=== PATIENT | male | born 1995 | race Caucasian/White ===

== ENCOUNTER 2019-09-30 07:49 | Emergency (ER) | payer OTHER, SELFPAY ==
[2019-09-30 07:49] VITALS: BP 161/85; PULSE 67; RESP 16; TEMP 36.4; O2SAT 99; BMI 38.0
--- NOTE | 2019-09-30 07:58 | RAD_ITS ---
STUDY: X-RAY CHEST REASON FOR EXAM: Male, 23 years old. TECHNIQUE: 2 views COMPARISON: None. FINDINGS: The lungs are clear and expanded. There is no demonstrated pleural abnormality. Normal size heart. Normal mediastinum and sherice. Normal visualized pulmonary arteries. Normal visualized aortic arch and descending thoracic aorta. Normal visualized thoracic spine. Normal visualized ribs, clavicles, and shoulders. There is no demonstrated abnormality of the visualized soft tissue structures of the upper abdomen. RAD/Chest PA and Lateral IMPRESSION: Normal x-ray examination of the chest. Electronically Signed: Amie Penaloza, at 8:36 EST Tel , Service support ,
--- NOTE | 2019-09-30 07:58 | EKG12_ITS ---
Test Reason : DYSRHYTHMIA Blood Pressure : / mmHG Vent. Rate : 076 BPM Atrial Rate : 076 BPM P-R Int : 140 ms QRS Dur : 090 ms QT Int : 396 ms P-R-T Axes : 044 032 033 degrees QTc Int : 445 ms Normal sinus rhythm with sinus arrhythmia Normal ECG Confirmed by SUMIT WINSLOW, PATRIC ([id number]), content editor SHARON HENSON ([id number]) on 10/03/2019 11:27:37 AM Referred By: SHALINI Confirmed By:PATRIC ARANA MD
--- NOTE | 2019-09-30 08:00 | ED.VIS.GEN ---
History of Present Illness Chief Complaint: Back Informant: Patient, Family Onset: Today - Dyspnea and dyspnea on exertion started today, Days - Right upper back pain started 2 days ago Context: Sudden Onset Timing: Continuous - Shortness of breath has been continuous since onset this morning, Intermittent - The upper back pain is intermittent and worse with movement Quality: Pain Location: Posterior right scapular region Current Severity: Mild Maximum Severity: Severe Worsened by: Use of right upper extremity and dyspnea on exertion Relieved by: Not using the right upper extremity and nothing Associated Symptoms: Please read HPI Narrative: This is a 23-year-old male who presents with chief complaint of right upper back pain that he localized to the right scapular region that started 2 days ago. He admits to lifting and pushing and pulling heavy objects several days ago. He works in [employer]. Pain started after stretching exercises. He also complains of shortness of breath that started this morning with dyspnea on exertion. The right upper back pain is worse with use of the right upper extremity. He saw a chiropractor yesterday. He was informed this is a strain and recommended ice and ibuprofen or Aleve. He has not taken any NSAID. He does report pain is worse with movement and better if he does not use right upper extremity. He denies radicular pain. He denies paresthesia, anesthesia or motor weakness. He denies fever, chills night sweats. He denies rhinorrhea, congestion or postnasal drainage. Denies sore throat. He does report shortness of breath and has significant shortness of breath with minimal activity. He states he starts to become short of breath after walking 5 steps. There is a pleuritic component of chest pain on the right side. He has no history of PE or DVT. Per mother there is no family history of PE or DVT. He denies leg pain, swelling discoloration. Prior similar symptoms: No Recent Illness/Hospitalization: Yes - Shoulder pain - Past Medical History (1) No significant past medical history Status: Acute Past Medical History - Allergies and Home Meds Allergies/Adverse Reactions: Allergies azithromycin [From Zithromax] Allergy (Verified 09/23/17 02:44) Unknown diphenhydramine HCl [From Benadryl] Allergy (Verified 09/23/17 02:44) Unknown Primary Care Physician: Hilton Mae III, MD [Primary Care Provider] - Prior records reviewed: Yes Past Medical History: None Surgical History: no surgical history Lives: With Family Smoking Status: Current every day smoker Alcohol: None Drugs: None Review of Systems General: Denies: Chills, Fever, Sweats Eyes: Denies: Visual changes - bilaterally, Blurred Vision - bilaterally, Diplopia ENT: Denies: Bilateral ear pain, Rhinorrhea, Sore throat Cardiovascular: Denies: Chest pain, Palpitations, Heart racing Respiratory: Reports: Dyspnea, Dyspnea on exertion. Denies: Cough Gastrointestinal: Denies: Abdominal pain, Nausea, Vomiting, Diarrhea, Melena, Hematochezia Genitourinary: Denies: Dysuria, Hematuria, Frequency Musculoskeletal: Reports: Back pain. Denies: Myalgias, Arthralgias, Neck pain, Swelling, Extremity Pain Skin: Denies: Rash, Abscess, Wounds Neurological: Denies: Headache, Weakness, Numbness Psych: Denies: Depression, Anxiety Hematologic: Denies: Easy bruising, Easy bleeding Allergy: Denies: Uticaria, Swelling of the mouth Physical Exam Vital Signs/Narrative: Vital Signs Temp Pulse Resp BP Pulse Ox 09/30/19 07:49 97.5 F L 67 16 161/85 H 99 Inital Vital Signs reviewed: Yes General: Well nourished, Well developed, Obese, Acute Distress - Appears tachypneic with minimal movement. Head: Normocephalic, Atraumatic Eyes: Perrl, EOMI. Negative for: Pale conjunctiva, Scleral icterus ENT: Moist mucous membranes, No rhinorrhea, TM's clear Neck: Supple, Nontender, No lymphadenopathy, No JVD Cardiovascular: Regular rate, Regular rhythm, No murmurs, Normal S1, Normal S2 Respiratory: CTA bilaterally, Chest nontender. Negative for: No distress, Rales, Rhonchi, Wheezing Abdomen: Soft, Nontender, Nondistended, Normal bowel sounds Back: Normal Inspection, - - There is pain palpation over the right scapular region.. Negative for: CVA tenderness, Spinal tenderness Extremities: Nontender, No edema, - - There is no asymmetry, swelling, discoloration, leg vein distention, palpable cords or tenderness along the distribution of the deep venous system. Skin: Normal color, No rash, No Trauma. Negative for: Cyanosis, Diaphoresis, Jaundice Neurological: Alert, Oriented x3, Cranial nerves II-XII grossly intact, Normal Strength, Normal Sensation Psychological: Normal affect, Normal Mood Diagnostic/Tx/Re-eval Chest X-Ray - ED: 2 View, Read by ED Physician, - - 2 view chest x-ray interpreted by me at 0822 reveals no acute abnormality. Cardiac silhouette and size are normal. Mediastinum is normal. Lung parenchyma is normal with no infiltrate or effusion. There is no evidence of pneumothorax. There is no evidence of rib fractures. If d-dimer is elevated patient will need a CTA of the chest to evaluate for pulmonary embolus. Impressions Chest X-Ray 09/30/19 07:58 IMPRESSION: Normal x-ray examination of the chest. Electronically Signed: Amie Penaloza, at 8:36 EST Tel , Service support , 09/30/19 07:58 Chest PA and Lateral [RAD] Stat Laboratory Results 09/30/19 09/30/19 09/30/19 08:05 08:05 08:05 WBC 8.7 RBC 5.80 Hgb 15.3 Hct 47.2 MCV 81.4 MCH 26.4 L MCHC 32.4 RDW Std Deviation 38.6 RDW Coeff of Elina 13.2 Plt Count 162 MPV 11.9 D-Dimer Quant (PE/DVT) 0.29 Sodium 144 Potassium 4.0 Chloride 109 H Carbon Dioxide 29.0 Anion Gap 6 BUN 9 Creatinine 0.90 Estim Creat Clear Calc 158.06 Est GFR (MDRD) Af Amer 134 Est GFR (MDRD) Non-Af 111 BUN/Creatinine Ratio 10.0 Glucose 101 Calcium 9.3 With a normal chest x-ray and normal d-dimer with no risk factors for pulmonary embolus no further testing/imaging is indicated. Blood work is unremarkable. Patient was informed of the shoulder pain is secondary to muscle strain. And the pain with breathing is inflammation and treated with NSAIDs. There is no contraindication to NSAIDs. - EKG Initial EKG Interpretation: Sinus Rhythm - Sinus rhythm with a ventricular rate of 76. UT interval is 140 ms. QS duration 90 ms. QT duration 396 ms. Onia is normal. There are no old EKGs for comparison. - Medical Decision Making With dyspnea dyspnea on exertion the fact the patient is tachypneic in spite of triage document respiratory is 16 concern patient may have PE. Other causes may be pneumonia or spontaneous pneumothorax. Chest x-ray was obtained as well as d-dimer and appropriate blood work. Patient was informed that his right scapular pain is muscle skeletal etiology and agree with recommendations given by chiropractor. NSAIDs for pleuritic chest pain and muscle strain. ED Disposition - Plan for ED Patient: Disposition: Home or Assisted Living Diagnosis: Pleurisy, Muscle strain of right shoulder region Instructions: Back Sprain/Strain, Pleurisy Referrals: Hilton Mae III, MD [Primary Care Provider] - 1 Week if not improving Additional Instructions: Recommend applying ice for 15 to 20 minutes 6-8 times a day. Avoid activity that causes your upper back pain to be worse. Agree with chiropractor to take either ibuprofen or Aleve for your shoulder pain. This will also help with your pleuritic pain, pain with breathing. If you are not better within a week follow-up with your primary care provider Dr. Hilton Mae.
[2019-09-30 08:16] LABS: Hematocrit 47.2 % (40-54); Hemoglobin 15.3 g/dL (13.0-16.5); Mean Corp Hgb Conc 32.4 g/dL (32-36); Mean Corpuscular Hgb 26.4 pg (27.0-32.0); Mean Corpuscular Volume 81.4 fL (80-94); Mean Platelet Vol. 11.9 fl (6.2-12.0); Platelet Count 162 K/mm3 (150-450); RBC Distribution Width CV 13.2 % (11.6-14.6); RBC Distribution Width SD 38.6 fl (35.1-43.9); White Blood Count 8.7 K/mm3 (4.4-11.0)
[2019-09-30 08:27] LABS: Anion Gap 6 (5-15); BUN 9 mg/dL (7-18); Calcium,Total 9.3 mg/dL (8.5-10.1); Chloride 109 mmol/L (98-107); EST Glomerular Filtration Rate 111 mL/min (>60); Est Glom Filt Rate - Afr Amer 134 mL/min (>60); Estimated Creatinine Clearance 158.06 ml/min; Glucose 101 mg/dL (74-106); Sodium Level 144 mmol/L (136-145)
[2019-09-30 09:21] LABS: D-Dimer Quantitative (DVT/PE) 0.29 FEU/ug/m (0.27-0.49)
[2019-09-30] MEDS: Ondansetron ODT 4 MG Tablet PO (09:39)
[2019-09-30 09:46] VITALS: BP 145/93; PULSE 79; RESP 16; O2SAT 98
== END 2019-09-30 09:47 | disposition home or self-care (01) ==
PROVIDERS: Emergency Provider Emergency Medicine; Family Provider Family Medicine; PCP Family Medicine
DX: S46.911A Strain of unspecified muscle, fascia and tendon at shoulder and upper arm level, right arm, initial encounter (principal); R09.1 Pleurisy; X58.XXXA Exposure to other specified factors, initial encounter; Y93.9 Activity, unspecified; Y92.9 Unspecified place or not applicable; Y99.9 Unspecified external cause status; M54.6 Pain in thoracic spine; R06.82 Tachypnea, not elsewhere classified; E66.9 Obesity, unspecified; Z88.8 Allergy status to other drugs, medicaments and biological substances; Z88.1 Allergy status to other antibiotic agents; F17.200 Nicotine dependence, unspecified, uncomplicated
CPT/HCPCS: 71046; 80048; 85027; 85379; 93005; 99285; A4216

== ENCOUNTER 2020-03-15 10:44 | Emergency (ER) | payer BC, SELFPAY ==
[2020-03-15 10:45] VITALS: BP 161/101; PULSE 95; RESP 18; TEMP 36.4; O2SAT 97; BMI 41.9
--- NOTE | 2020-03-15 10:54 | ED.DCSUM_ITS ---
- ER Visit Summary Date of Service: 03/15/20 Chief Complaint: Abdominal pain History of Present Illness: The patient is a 24 M who presents with abdominal pain. Started earlier today. He describes a stabbing sensation in his epigastric region. It does not radiate. Nothing makes it better or worse. He has had associated nausea without vomiting. No diarrhea or constipation. He denies any urinary symptoms. No fevers. He denies any history of abdominal surgeries. He states that his doctor has been following his liver enzymes as they were elevated at one point but they are trending down. He states that he went through a bad break-up and was drinking a lot of alcohol at that time but has since stopped drinking after his liver enzymes were elevated. His PCP did an acute hepatitis panel and it was negative. Physical Examination: Vital signs reviewed. HEENT exam unremarkable. Heart is regular rate and rhythm without murmurs. Lungs are clear to auscultation. Abdomen is soft with tenderness in the epigastric region. There is no right upper quadrant tenderness. No guarding or rebound tenderness. Extremities reveal no edema. Skin exam normal. Neurologic exam normal. Test Results: Laboratory studies show potassium 3.3, ALT 127, AST 61. Lipase and white count normal Emergency Department Course and Treatment: Patient was given a GI cocktail. Upon reevaluation he is feeling better. This is likely gastritis. He states he has no elevation of his liver enzymes which she is following with his PCP with. Patient will be discharged with Prilosec to take daily. He will follow-up with his PCP Treatment Plan: [] Disposition: Discharge Impression: Gastritis This note was generated with [employer] dictation software. It may contain incorrect words, spelling, and punctuation that were not noted in review of the chart prior to signing ED Disposition - Plan for ED Patient: Disposition: Home or Assisted Living Instructions: ED Gastritis Prescriptions: Omeprazole [Prilosec] 20 mg PO DAILY #30 cap Transmission Status: Pending to [facility]/pharmacy #[id number] Referrals: Hilton Mae III, MD [Primary Care Provider] -
[2020-03-15] MEDS: Mag Hydrox/Al Hydrox/Simeth 30 ML UDC PO (11:15)
[2020-03-15 11:28] LABS: Absolute Lymphocyte Count 2.69 X10^3/uL (0.83-4.51); Absolute Neutrophil Count 4.5 X10^3/uL (2.0-7.7); Basophil# 0.04 X10^3/uL; Basophil% 0.5 % (0-1); Eosinophil# 0.12 X10^3/uL; Eosinophils% 1.5 % (0-5); Hematocrit 47.8 % (40-54); Hemoglobin 15.4 g/dL (13.0-16.5); Lymphocyte # 2.69 X10^3/ul (4.0); Lymphocyte % 33.5 % (19-41); Mean Corp Hgb Conc 32.2 g/dL (32-36); Mean Corpuscular Hgb 26.9 pg (27.0-32.0); Mean Corpuscular Volume 83.6 fL (80-94); Mean Platelet Vol. 11.7 fl (6.2-12.0); Monocyte# 0.67 X10^3/uL; Monocyte% 8.3 % (0-10); NRBC Flagged by Analyzer 0 % (0-5); Neutrophil # 4.49 X10^3/uL (2.7-7.7); Neutrophil % 55.8 % (47-70); Platelet Count 150 K/mm3 (150-450); RBC Distribution Width SD 42.5 fl (35.1-43.9); Red Blood Count 5.72 M/mm3 (4.6-6.2)
[2020-03-15 11:47] LABS: AST(SGOT) 61 U/L (15-37); Alanine Aminotransfer ALT/SGPT 127 U/L (16-61); Alkaline Phosphatase 58 U/L (45-117); Anion Gap 6 (5-15); BUN 6 mg/dL (7-18); BUN/Creat Ratio 7.2 RATIO (10-20); Bilirubin, Direct 0.11 mg/dL (0.00-0.30); Calcium,Total 8.9 mg/dL (8.5-10.1); Chloride 105 mmol/L (98-107); Creatinine, Serum 0.84 mg/dL (0.70-1.30); EST Glomerular Filtration Rate 121 mL/min (>60); Est Glom Filt Rate - Afr Amer 146 mL/min (>60); Estimated Creatinine Clearance 159.02 ml/min; Globulin 3.5 g/dL (2.2-4.2); Glucose 76 mg/dL (74-106); Lipase 69 U/L (73-393); Potassium 3.3 mmol/L (3.5-5.1); Protein, Total 7.5 g/dL (6.4-8.2); Sodium Level 141 mmol/L (136-145)
--- OUTSIDE RECORDS SUMMARY | 2020-08-14 10:28 | XMS RPT_ITS | CCD ---
:1995 External Reference #:[id number] Author Organization [facility] Care Team Providers Name Role Phone ARABELLA, E Admitting Unavailable ARABELLA, E Attending Unavailable ARABELLA, E Primary Care Unavailable Ihsan Mae Primary Care Provider Allergies Reported Allergen Reaction(s) Severity Date of Onset Location Azithromycin 07-29-2005 - [facility] ([id number]) diphenhydrAMINE Other: See Comments 04-17-2011 - [facility] ([id number]) Medications Medication Name Sig Date Prescriber Location Ondansetron ondansetron orally 06-17-2020 [facility] disintegrating (ZOFRAN Isaura R (Pa) [place] ( [id number]) ODT) 4 mg disintegrating tablet Take 1 tablet by mouth every 8 hours as needed. 12 tablet 0 06/17/2020 Active Comment: Take 1 tablet by mouth every 8 hours as needed. valACYclovir valACYclovir (VALTREX) 04-20-2020 Angi N (Aircraft Structure Mechanic C [facility] 500 mg tablet Take 1 Cylinder Grinder) [place] ([id number]) tablet by mouth every Angi N (Aircraft Structure Mechanic 12 hours for 3 days. 6 Cylinder Grinder) [place] tablet 0 04/20/2020 Active Comment: Take 1 tablet by mouth every 12 hours for 3 days. Problems Active Problems Category Problem Name Status Date Location Genitourinary symptoms Urinary incontinence Active 02-07-2009 - [facility] and ill-defined (11996) conditions Immunizations and Contact with and Active 05-16-2020 - [facility] screening for infectious (suspected) exposure [facility] disease to other viral (63428) communicable diseases Nausea and vomiting Nausea and vomiting Active C [facility] ([id number]) Other liver diseases Non-alcoholic fatty Active 03-16-2020 - [facility] liver (94549) Other nutritional; Obesity Active 02-07-2009 - [facility] endocrine; and metabolic (44 195) disorders Unclassified Patient encounter Active 02-02-2010 - [facility] status (83861) Viral infection Genital herpes simplex Active 08-15-2019 - [facility] ([id number]) Past or Other Problems Category Problem Name Status Date Location Abdominal pain Abdominal pain Completed 11-06-2008 - [facility] ([id number]) Other screening for Liver function tests Completed 03-16-2020 - [facility] suspected conditions abnormal ([id number]) (not mental disorders or infectious disease) Other skin disorders Disorder of nail Completed 05-27-2012 - [facility] ([id number]) Results Result Name Value Range Unit Interpretation Flag Date Location progress on 2020-06 PROGRESS HNO ID: [id number] Normal 06-17-2020 [facility] Author: Isaura Stearns) Zulma Trevizo ([id number]) Service: ? Author Type: Physician Street Superintendent Type: Progress Notes Filed: 06/17/2020 12:41 PM Note Text: This note was created using [email or web address]. Elbert Pina is a 24 year old male. HPI Pt presents vomiting after eating. He has problems with this off and on since spring. He has been seen in the ER and by his primary doctor. He was diagnosed with fatty liver disease and he sta ceci his PCP contributed the vomiting to that. He did have an ultrasound of the right upper quadrant and march which showed a fatty liver. He states he's had some abdominal cramping off and on mainly before he goes to vomit. He started to vomit yesterday. He states he needs a work note a s he doesn't feel he should go in today. No fever. No cough or congestion . No sore throat. No diarrhea. Yesterday he did eat a fried chicken fr om [employer] but his girlfriend ate the same thing and she did not get il l. Review of Systems Constitutional: Negative. HENT: Negative. Negative for congestion, ear pain and sore t hroat. Eyes: Negative. Respiratory: Negative for cough and shortness of breath. Cardiovascular: Negative. Negative for chest pain. Gastrointestinal: Positive for abdominal pain, nausea and vo miting. Negative for diarrhea. Endocrine: Negative. Genitourinary: Negative. Musculoskeletal: Negative. All other systems reviewed and are negative. PAST MEDICAL HISTORY Diagnosis Date - Chronic mucoid otitis media - Expressive language disorder - Respiratory syncytial virus (RSV) Current Outpatient Medications Medication Sig Dispense Refill - valACYclovir (VALTREX) 500 mg tablet Take 1 tablet by mout h every 12 hours for 3 days. 6 tablet 0 - ondansetron orally disintegrating (ZOFRAN ODT) 4 mg disint egrating tablet Take 1 tablet by mouth every 8 hours as needed. 12 ta blet 0 No current facility-administered medications for this visit. PAST SURGICAL HISTORY Procedure Laterality Date - INCISION EARDRUM,ASPIR,GEN ANESTH Myringotomy/tubes - REPAIR ING HERNIA,5+Y/O,REDUCIBL 1986 Hernia repair, inguinal, bilateral FAMILY HISTORY Problem Relation Age of Onset - None Mother - None Father - Heart Maternal Grandmother - Hypertension Maternal Grandmother - Hypertension Paternal Grandfather - Diabetes Paternal Grandfather Social History Tobacco Use - Smoking status: Current Every Day Smoker Types: Cigarettes - Smokeless tobacco: Never Used - Tobacco comment: smokes 1-2 per day Substance Use Topics - Alcohol use: No - Drug use: No Objective BP 142/88 Pulse 80 Temp 37 ?C (98.6 ?F) (Left Tympanic) Resp 16 Wt (!) 150 kg (330 lb 9.6 oz) SpO2 97% Physical Exam Vitals signs reviewed. Constitutional: Appearance: Normal appearance. HENT: Head: Normocephalic and atraumatic. Mouth/Throat: Mouth: Mucous membranes are moist. Pharynx: Oropharynx is clear. Cardiovascular: Rate and Rhythm: Normal rate and regular rhythm. Pulmonary: Breath sounds: Normal breath sounds. Abdominal: General: Abdomen is flat. Bowel sounds are normal. There is no distension. Palpations: Abdomen is soft. There is no mass. Tenderness: There is no abdominal tenderness. There is no gu arding or rebound. Skin: General: Skin is warm and dry. Coloration: Skin is not jaundiced or pale. Findings: No rash. Neurological: General: No focal deficit present. Mental Status: He is alert and oriented to person, place, an d time. Psychiatric: Mood and Affect: Mood normal. Behavior: Behavior normal. Assessment and Plan ASSESSMENT/PLAN: 1. Non-intractable vomiting with nausea, unspecified vomitin g type - ICD9: 787.01, ICD10: R11.2 Patient appears well here. Vital signs are stable. Abdominal exam unremarkable. I will give him some Zofran. Discussed with teresita josé if he can't keep any fluids down over the next day, developed tatiana re abdominal pain or fever I would recommend being seen in the ED. This i s a chronic issue for him. I did encourage him to follow up with his PCP . He is agreeable with plan. MURRAY Burgerov on 2020-06-17 CNOV Office Visit ([facility]) Normal 06-17-20 20 [place] AROLDO Salcido ([id number]) 1995 M [place] Date Time Provider Department ([id number]) 06/17/20 12:00 PM ISAURA WEINBERG (SEEMA) W[facility] During your visit today, we recorded the following informati on about you: Temperature Pulse Respiration Blood pressure 98.6 degrees 80/minute 16/minute 142/88 Weight 150 kg Isaura Weinberg PA-C 06/17/2020 12:41 PM Signed This note was created using [email or web address]. Subjective Aroldo Pina is a 24 year old male. HPI Pt presents vomiting after eating. He has proble ms with this off and on since spring. He has been seen in the ER and by his primary doctor. He was diagnosed with fatty liver disease and he states his PCP con tributed the vomiting to that. He did have an ultrasound of the right u pper quadrant and march which showed a fatty liver. He state s he's had some abdominal cramping off and on mainly before he goes to vomit. He started to vomit y esterday. He states he needs a work note as he doesn't feel he should go in today. No fever. No cough or congestion. No sore throat. No diarrhea. Yesterday he did eat a fried chicken from [employer] but his girlfriend ate the same thing and she did not get ill. Review of Systems Constitutional: Negative. HENT: Negative. Negative for congestion, ear pain and sore t hroat. Eyes: Negative. Respiratory: Negative for cough and shortness of breath. Cardiovascular: Negative. Negative for chest pain. Gastrointestinal: Positive for abdominal pain, nausea and vomiting. Negative for diarrhea. Endocrine: Negative. Genitourinary: Negative. Musculoskeletal: Negative. All other systems reviewed and are negative. PAST MEDICAL HISTORY Diagnosis Date - Chronic mucoid otitis media - Expressive language disorder - Respiratory syncytial virus (RSV) Current Outpatient Medications Medication Sig Dispense Refill - valACYclovir (VALTREX) 500 mg tablet Take 1 tablet b y mouth every 12 hours for 3 days. 6 tablet 0 - ondansetron orally disintegrating (ZOFRAN ODT) 4 mg disi ntegrating tablet Take 1 tablet by mouth every 8 hours as needed. 12 tablet 0 No current facility-administered medications for this visit. PAST SURGICAL HISTORY Procedure Laterality Date - INCISION EARDRUM,ASPIR,GEN ANESTH Myringotomy/tubes - REPAIR ING HERNIA,5+Y/O,REDUCIBL 1986 Hernia repair, inguinal, bilateral FAMILY HISTORY Problem Relation Age of Onset - None Mother - None Father - Heart Maternal Grandmother - Hypertension Maternal Grandmother - Hypertension Paternal Grandfather - Diabetes Paternal Grandfather Social History Tobacco Use - Smoking status: Current Every Day Smoker Types: Cigarettes - Smokeless tobacco: Never Used - Tobacco comment: smokes 1-2 per day Substance Use Topics - Alcohol use: No - Drug use: No Objective BP 142/88 Pulse 80 Temp 37 ?C (98.6 ?F) (Left Tympanic) Resp 16 Wt (!) 150 kg (330 lb 9.6 oz) SpO2 97% Physical Exam Vitals signs reviewed. Constitutional: Appearance: Normal appearance. HENT: Head: Normocephalic and atraumatic. Mouth/Throat: Mouth: Mucous membranes are moist. Pharynx: Oropharynx is clear. Cardiovascular: Rate and Rhythm: Normal rate and regular rhythm. Pulmonary: Breath sounds: Normal breath sounds. Abdominal: General: Abdomen is flat. Bowel sounds are normal. There is no distension. Palpations: Abdomen is soft. There is no mass. Tenderness: There is no abdominal tenderness. There is no gu arding or rebound. Skin: General: Skin is warm and dry. Coloration: Skin is not jaundiced or pale. Findings: No rash. Neurological: General: No focal deficit present. Mental Status: He is alert and oriented to person, place, an d time. Psychiatric: Mood and Affect: Mood normal. Behavior: Behavior normal. Assessment and Plan ASSESSMENT/PLAN: 1. Non-intractable vomiting with nausea, unspecified vomitin g type - ICD9: 787.01, ICD10: R11.2 Patient appears well here. Vital signs are stable. Abdominal exam unremarkable. I will give him some Zofran. Discussed with teresita josé if he can't keep any fluids down over the next day, developed severe abd ominal pain or fever I would recommend being seen in th e ED. This is a chronic issue for him. I did encourage him to follow up with his PCP. He is agreeab le with plan. Isaura Weinberg PA-C Referring Provider: SELF [200] Allergies As of Date: 06/17/2020 Noted Allergy Reaction BENADRYL (DIPHENHYDRAMINE HCL) 04/17/2011 14 - Other: See Co mments Comments: Feels like he's jumping out of his skin ZITHROMAX (AZITHROMYCIN) 07/29/2005 Date Reviewed: 06/17/2020 Reviewed by: Angi Ohara Ma - Fully Assessed Reason for Visit: Vomiting [120] Primary Visit Diagnosis:Non-intractable vomiting with nausea , unspecified vomiting type [R11.2] Order(s):ondansetron orally disintegrating (ZOFRAN ODT) 4 mg disintegrating tabletTake 1 tablet by mouth every 8 hours as needed.Disp: 1 2 tabletRfl: 0 Prescriptions as of 06/17/2020 Sig: VALACYCLOVIR 500 MG TABLET Take 1 tablet by mouth every * ONDANSETRON 4 MG DISINTEGRATI* Take 1 tablet by mouth every * Problem List As Of Date 06/17/2020 Noted Resolved PAIN GROIN [R10.9] 11/06/2008 URINARY INCONTINENCE, UNSPECIFIED [R32] 02/07/2009 OBESITY NOS [E66.9] 02/07/2009 Well Adolescent Visit [Z00.3] 02/02/2010 Onychia and paronychia of toe [L03.039] 05/27/2012 Herpes genitalis in men [A60.02] 08/15/2019 Non-alcoholic fatty liver disease [K76.0] 03/16/2020 Elevated liver function tests [R79.89] 03/16/2020 Prescriptions ordered this encounter Disp Refills Start End ONDANSETRON 4 MG DISINTEGRATING TABL* 12 t* 0 06/17/2020 Route: ORAL Sig: Take 1 tablet by mouth every 8 hours as needed. Letter Text Encounter Status:Closed by ISAURA WEINBERG PA-C on 06/17/20 progress on 2020-05 PROGRESS HNO ID: [id number] Normal 05-31-2020 [facility] Author: Mitesh (Cylinder Grinder) [facility] ([id number]) Service: ? Author Type: Nurse Practitioner Type: Progress Notes Filed: 05/31/2020 12:15 PM Note Text: Subjective HPI HPI Aroldo Pina is a 24 year [facility], body aches. This started 2 days ago. Has tried otc medication. Risk factors hx of strep. .Patient presents with: Sore Throat: ST x 2 days PAST MEDICAL HISTORY Diagnosis Date - Chronic mucoid otitis media - Expressive language disorder - Respiratory syncytial virus (RSV) PAST SURGICAL HISTORY Procedure Laterality Date - INCISION EARDRUM,ASPIR,GEN ANESTH Myringotomy/tubes - REPAIR ING HERNIA,5+Y/O,REDUCIBL 1986 Hernia repair, inguinal, bilateral ALLERGIES Benadryl [Diphenhydramine Hcl]; Zithromax [Azithro mycin] -This section reviewed with patient, no changes MEDICATIONS valACYclovir (VALTREX) 500 mg tablet Take 1 tablet by mouth every 12 hours for 3 days. FAMILY HISTORY Problem Relation Age of Onset - None Mother - None Father - Heart Maternal Grandmother - Hypertension Maternal Grandmother - Hypertension Paternal Grandfather - Diabetes Paternal Grandfather Social History Tobacco Use - Smoking status: Current Every Day Smoker Types: Cigarettes - Smokeless tobacco: Never Used - Tobacco comment: smokes 1-2 per day Substance Use Topics - Alcohol use: No - Drug use: No Review of Systems Constitutional: Positive for malaise/fatigue. Negative for f ever. HENT: Positive for congestion. Negative for ear pain, nosebl eeds and sore throat. Respiratory: Negative for cough, shortness of breath and whe ezing. Musculoskeletal: Negative for neck pain. Skin: Negative for itching and rash. Objective Blood pressure 118/78, pulse 78, temperature 37 ?C (98.6 ?F) , temperature source Tympanic, resp. rate 16, weight (!) 148.3 kg (327 lb) . Minimal exam d/t covid 19 pandemic. Physical Exam Constitutional: He is oriented to person, place, and time an d well-developed, well-nourished, and in no distress. Non-toxi c appearance. He does not have a sickly appearance. No distress. HENT: Head: Normocephalic and atraumatic. Nose: Nose normal. Mouth/Throat: Oropharyngeal exudate and posterior oropharyng eal erythema present. No posterior oropharyngeal edema or tonsillar absce sses. Pulmonary/Chest: Effort normal. No accessory muscle usage. N o respiratory distress. Lymphadenopathy: He has cervical adenopathy. Right cervical: Superficial cervical adenopathy present. Left cervical: Superficial cervical adenopathy present. Neurological: He is alert and oriented to person, place, and time. Skin: He is not diaphoretic. ASSESSMENT/PLAN: 1. Exudative pharyngitis - ICD9: 462, ICD10: J02.9 - suspect strep, no testing available at time of exam d/t co vid 19 pandemic. - Discussed supportive care treatment with fluids, rest and analgesia. - The patient should follow up in 3-5 days if symptoms persi st or worsen - Call back if drooling, increased temperature, symptoms of dehydration and/or still sick in one week - CEPHALEXIN 500 MG CAPSULE Agrees to plan JOSEPH Castillo on 2020-05-31 CNOV Office Visit ([facility]) Normal 05-31-[address] [place] [address] [facility] AROLDO PINA ([id number]) 1995 [place] Date Time Provider Department ([id number]) 05/31/20 8:15 AM MITESH GONZALEZ (SEAN) WSTR During your visit today, we recorded the following informati on about you: Temperature Pulse Respiration Blood pressure 98.6 degrees 78/minute 16/minute 118/78 Weight 148.3 kg Mitesh Gonzalez APRN.CNP 05/31/2020 12:15 PM Signed Subjective HPI HPI Aroldo Pina is a 24 year old male who present s today for CC of sore throat, body aches. This started 2 days ago. Has tried otc medication. Risk factors hx of strep. .Patient presents with: Sore Throat: ST x 2 days PAST MEDICAL HISTORY Diagnosis Date - Chronic mucoid otitis media - Expressive language disorder - Respiratory syncytial virus (RSV) PAST SURGICAL HISTORY Procedure Laterality Date - INCISION EARDRUM,ASPIR,GEN ANESTH Myringotomy/tubes - REPAIR ING HERNIA,5+Y/O,REDUCIBL 1986 Hernia repair, inguinal, bilateral ALLERGIES Benadryl [Diphenhydramine Hcl]; Zithromax [Azithro mycin] -This section reviewed with patient, no changes MEDICATIONS valACYclovir (VALTREX) 500 mg tablet Sander e 1 tablet by mouth every 12 hours for 3 days. FAMILY HISTORY Problem Relation Age of Onset - None Mother - None Father - Heart Maternal Grandmother - Hypertension Maternal Grandmother - Hypertension Paternal Grandfather - Diabetes Paternal Grandfather Social History Tobacco Use - Smoking status: Current Every Day Smoker Types: Cigarettes - Smokeless tobacco: Never Used - Tobacco comment: smokes 1-2 per day Substance Use Topics - Alcohol use: No - Drug use: No Review of Systems Constitutional: Positive for malaise/fatigue. Negative for f ever. HENT: Positive for congestion. Negative for ear pain, nosebl eeds and sore throat. Respiratory: Negative for cough, shortness of breath and whe ezing. Musculoskeletal: Negative for neck pain. Skin: Negative for itching and rash. Objective Blood pressure 118/78, pulse 78, temperature 37 ?C (98.6 ?F) , temperature source Tympanic, resp. rate 16, weight (!) 148.3 kg (327 lb) . Minimal exam d/t covid 19 pandemic. Physical Exam Constitutional: He is oriented to person, place, and time and well-developed, well-nourished, and in no distress. Non-toxic appearan ce. He does not have a sickly appearance. No distress. HENT: Head: Normocephalic and atraumatic. Nose: Nose normal. Mouth/Throat: Oropharyngeal exudate and posterior oropharyng eal erythema present. No posterior oropharyngeal edema or tonsillar absce sses. Pulmonary/Chest: Effort normal. No accessory muscle usage. N o respiratory distress. Lymphadenopathy: He has cervical adenopathy. Right cervical: Superficial cervical adenopathy present. Left cervical: Superficial cervical adenopathy present. Neurological: He is alert and oriented to person, place, and time. Skin: He is not diaphoretic. ASSESSMENT/PLAN: 1. Exudative pharyngitis - ICD9: 462, ICD10: J02.9 - suspect strep, no testing available at time of exam d/t covid 19 pandemic. - Discussed supportive care treatment with fluids, rest and analgesia. - The patient should follow up in 3-5 days if symptoms persi st or worsen - Call back if drooling, increased tempe rature, symptoms of dehydration and/or still sick in one week - CEPHALEXIN 500 MG CAPSULE Agrees to plan Mitesh Gonzalez APRN.FOLDER HAND Referring Provider: SELF [200] Allergies As of Date: 05/31/2020 Noted Allergy Reaction BENADRYL (DIPHENHYDRAMINE HCL) 04/17/2011 14 - Other: See Co mments Comments: Feels like he's jumping out of his skin ZITHROMAX (AZITHROMYCIN) 07/29/2005 Date Reviewed: 05/31/2020 Reviewed by: Naomi Overton LPN - Fully Assessed Reason for Visit: Sore Throat [200] Cmt: ST x 2 days Primary Visit Diagnosis:Exudative pharyngitis [J02.9] Order(s):cephALEXin (KEFLEX) 500 mg caps uleTake 1 capsule by mouth twice daily for 10 days.Disp: 20 capsuleRfl: 0 Prescriptions as of 05/31/2020 Sig: CEPHALEXIN 500 MG CAPSULE Take 1 capsule by mouth twice* VALACYCLOVIR 500 MG TABLET Take 1 tablet by mouth every * Problem List As Of Date 05/31/2020 Noted Resolved PAIN GROIN [R10.9] 11/06/2008 URINARY INCONTINENCE, UNSPECIFIED [R32] 02/07/2009 OBESITY NOS [E66.9] 02/07/2009 Well Adolescent Visit [Z00.3] 02/02/2010 Onychia and paronychia of toe [L03.039] 05/27/2012 Herpes genitalis in men [A60.02] 08/15/2019 Non-alcoholic fatty liver disease [K76.0] 03/16/2020 Elevated liver function tests [R79.89] 03/16/2020 Prescriptions ordered this encounter Disp Refills Start End CEPHALEXIN 500 MG CAPSULE 20 c* 0 05/31/2020 06/10/2020 Route: ORAL Sig: Take 1 capsule by mouth twice daily for 10 days. Letter Text Encounter Status:Closed by MITESH GONZALEZ CNP on 05/31/20 coronavirus pcr [ccl] on 2020-05-18 REF LAB REPORT NEGATIVE Normal 05-18-2020 [facility] ([id number]) Comment: Performed By: #### [id number] ## ## [facility],[address] [place] [id number] coronavirus pcr [ccl] on 2020-05-17 COVID 19 Result ENGINEERING ASSISTANT Negative CORNEG Normal 05-17-2020 [facility] ( [id number]) Comment: Result Comment: Negative for COVID19 (SARS CoV2) by PCR. This test was developed and its performance characteristics determined by [facility]. This test has bee n authorized by FDA under an Emergency Use Authorization (EUA). This test has been validated in accordance with the FDA's Guidance Document Policy for Diagnostics Test ing in Laboratories Certified to Perform High Complexity Testing under CLI A prior to Emergency use Authorization for Coronavirus Disease 2019 dur ing the Public Health Emergency issued on December 31, 2019. [facility] [address] [place] [address] Hansel Soliz III, M.D. [id number] Performed By: #### [id number] ## ## [facility],[address] [place] [id number] COVID 19 Source ENGINEERING ASSISTANT Nasopharyngeal Swab Normal 0 05-17-2020 [facility] ( [id number]) Comment: Performed By: #### [id number] ## ## [facility],[address] [place] [id number] coronavirus 2019 on 2020-05-17 COVID 19 Result ENGINEERING ASSISTANT Negative for COVID19 Normal 05-17-2020 [facility] (SARS CoV2) by PCR. [facility] ([id number]) Comment: Result Comment: Negative for This test was developed and its performance characteristics determined by [facility]. This test has been authorized by FDA under an Emergency Use Authorization (EUA). This test has been validated in accordance with the FDA's Guidance Document Policy for Diagnostics Testing in Laboratories Certified to Perform High Complexity Testing under CLIA prior to Emergency use Authorization for Coronavir us Disease 2019 during the Public Health Emergency issued on December 31, 2019. COVID19 (SARS This test was developed and its performance characteristics determined by [facility]. This test has been authorized by FDA under an Emergency Use Authorization (EUA). This test has been validated in accordance with the FDA's Guidance Document Policy for Diagnostics Testing in Laboratories Certified to Perform High Complexity Testing under CLIA prior to Emergency use Authorization for Coronavir us Disease 2019 during the Public Health Emergency issued on December 31, 2019. CoV2) by PCR. This test was developed and its performance characteristics determined by [facility]. This test has been authorized by [facility] under an Emergency Use Authorization (EUA). This test has been validated in accordance with the FDA's Guidance Document Policy for Diagnostics Testing in Laboratories Certified to Perform High Complexity Testing under CLIA prior to Emergency use Authorization for Coronavir us Disease 2019 during the Public Health Emergency issued on December 31, 2019. COVID 19 Source ENGINEERING ASSISTANT ENGINEERING ASSISTANT Normal 05-17-2020 [facility] ([id number]) cnpn on 2020-05-02 CNPN Telephone (FAMPWS) Normal 05-02-2020 [place] AROLDO Salcido ([id number]) 1995 [facility] Date Time Provider Department ([id number]) 05/02/20 DEA MAE III During your visit today, we recorded the following informati on about you: Emilie Haynes LPN, STEPAN 05/02/2020 1:53 PM Signed ----- Message from Dea Mae III sent at 04/28/2020 11:46 AM EDT ----- Liver function tests remain elevated without significant imp rovement. 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 I recommend rechecking hepatitis labs. Orders entered Stay off of alcohol. ? DOMINIQUE Lowe MD, LPN, STEPAN 05/02/2020 1:57 PM Signed Left message for pt to return call. Luther Staton LPN 05/02/2020 2:36 PM Signed Spoke with patient and information listed below given. Carlos Eduardo avila verbalizes understanding. Luther Staton LPN Allergies As of Date: 05/02/2020 Noted Allergy Reaction BENADRYL (DIPHENHYDRAMINE HCL) 04/17/2011 14 - Other: See Co mments Comments: Feels like he's jumping out of his skin ZITHROMAX (AZITHROMYCIN) 07/29/2005 Date Reviewed: 04/19/2020 Reviewed by: Bo ([facility]) Rolando - Fully Assessed Reason for Visit: Results [95] Prescriptions as of 05/02/2020 Sig: VALACYCLOVIR 500 MG TABLET Take 1 tablet by mouth every * Problem List As Of Date 05/02/2020 Noted Resolved PAIN GROIN [R10.9] 11/06/2008 URINARY INCONTINENCE, UNSPECIFIED [R32] 02/07/2009 OBESITY NOS [E66.9] 02/07/2009 Well Adolescent Visit [Z00.3] 02/02/2010 Onychia and paronychia of toe [L03.039] 05/27/2012 Herpes genitalis in men [A60.02] 08/15/2019 Non-alcoholic fatty liver disease [K76.0] 03/16/2020 Elevated liver function tests [R79.89] 03/16/2020 Encounter Status:Closed by LUTHER STATON LPN on 05/02/20 progress on 2020-04 PROGRESS HNO ID: [id number] Normal 04-26-2020 [facility] [place] Author: Tara Melton) Elias [place] ([id number]) Service: ? Author Type: Nurse Practitioner Type: Progress Notes Filed: 04/26/2020 10:40 AM Note Text: 24 year old male with PMH non alcoholic fatty liver presents to the [facility] with complaints of dizziness and having blacked out approximately 3 times while at work today. Discussed with seema hunter that his episodes of blacking out would require more of a work up the n what can be provided here in the express care. His girlfriend accompanie s him today and patient will be taken via private vehicle with girlfrien d to [place], per their preference. Declined calling EMS. cnov on 2020-04-26 CNOV Office Visit (UCWSTR) Normal 04-26-[address] [place] [address] [facility] PINAAROLDO ([id number]) 1995 [facility] Time Provider Department ([id number]) 04/26/20 10:15 AM TARA ROOT) [facility] During your visit today, we recorded the following informati on about you: Tara Root APRN.CNP 04/26/2020 10:40 AM Signed 24 year old male with PMH non alcoholic fatty liver presen ts to the Express Care with complaints of dizziness and cardona ving blacked out approximately 3 times while at work today. Discussed with patient that his episodes of blacking out would require more of a work up then what can be provided here in the express care. His girlfriend accompanies him today and patient will be taken via private vehicle with girlfriend to [place], per their prefer ence. Declined calling EMS. Referring Provider: SELF [200] Allergies As of Date: 04/26/2020 Noted Allergy Reaction BENADRYL (DIPHENHYDRAMINE HCL) 04/17/2011 14 - Other: See Co mments Comments: Feels like he's jumping out of his skin ZITHROMAX (AZITHROMYCIN) 07/29/2005 Date Reviewed: 04/19/2020 Reviewed by: Bo ([facility]) Rolando - Fully Assessed Primary Visit Diagnosis:Dizziness [R42] Other Visit Diagnosis:Syncope, unspecified syncope type [R55 ] Prescriptions as of 04/26/2020 Sig: VALACYCLOVIR 500 MG TABLET Take 1 tablet by mouth every * VALACYCLOVIR 1 GRAM TABLET Take 1 tablet by mouth once d* Patient not taking: Reported on 03/15/2020 Problem List As Of Date 04/26/2020 Noted Resolved PAIN GROIN [R10.9] 11/06/2008 URINARY INCONTINENCE, UNSPECIFIED [R32] 02/07/2009 OBESITY NOS [E66.9] 02/07/2009 Well Adolescent Visit [Z00.129] 02/02/2010 Onychia and paronychia of toe [L03.039] 05/27/2012 Herpes genitalis in men [A60.02] 08/15/2019 Non-alcoholic fatty liver disease [K76.0] 03/16/2020 Elevated liver function tests [R79.89] 03/16/2020 Encounter Status:Closed by TARA ROOT CNP on 04/26/20 seann on 2020-04-20 [facility] Telephone ([facility]) Normal 04-20-2020 [place] [facility] AROLDO PINA W ([id number]) 1995 [facility] Date Time Provider Department ([id number]) 04/20/20 ANGI BAE (GEAR ROOM KEEPER, FOLDER HAND)[facility] During your visit today, we recorded the following informati on about you: Angi Bae APRN.CNP 04/20/2020 1:06 PM Addendum Spoke with patient today regarding 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 I will go ahead and order Valtrex 500 mg q12 hours for 3 days as recommended for he rpes recurrence per Dr. Mae's note in March. I will also forward this to him as an FYI. Patient confirmed an understanding of this. Patient states he lost his bottle of Valtrex in a recent mov e. Angi Bae APRN.CNP Allergies As of Date: 04/20/2020 Noted Allergy Reaction BENADRYL (DIPHENHYDRAMINE HCL) 04/17/2011 14 - Other: See Co mments Comments: Feels like he's jumping out of his skin ZITHROMAX (AZITHROMYCIN) 07/29/2005 Date Reviewed: 04/19/2020 Reviewed by: Bo (Sean) Rolando - Fully Assessed Reason for Visit: Results [95] Order(s):valACYclovir (VALTREX) 500 mg tabletTake 1 ta blet by mouth every 12 hours for 3 days.Disp: 6 tabletRfl: 0 Prescriptions as of 04/20/2020 Sig: VALACYCLOVIR 500 MG TABLET Take 1 tablet by mouth every * MUPIROCIN 2 % TOPICAL OINTMENT Apply to affected area three * VALACYCLOVIR 1 GRAM TABLET Take 1 tablet by mouth once d* Patient not taking: Reported on 03/15/2020 Problem List As Of Date 04/20/2020 Noted Resolved PAIN GROIN [R10.9] 11/06/2008 URINARY INCONTINENCE, UNSPECIFIED [R32] 02/07/2009 OBESITY NOS [E66.9] 02/07/2009 Well Adolescent Visit [Z00.129] 02/02/2010 Onychia and paronychia of toe [L03.039] 05/27/2012 Herpes genitalis in men [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 Encounter Status:Closed by ANGI BAE APRN.CNP on 04/20 wound culture/stain on 2020-04-19 Wound Culture/Stain Sp. Request/Comment: - Swab Cr itically 04-19-2020 [place] Smear Result - No organisms seen No Polymorphonuclear Leukoc ytes abnormal Clinic Culture Result - Rare Coagul ase negative Staphylococcus species --> ABNORMAL ALERT No further workup --> ABNORMAL ALERT For wound culture, tissue or aspirates are superior to swab specimens. If a [place] swab must be used, eSwab is preferred (Hernandez no. [id number]). ([id number]) Comment: Performed By: #### WCUL #### [facility] [place] [address] [place], [place] [phone] progress on 2020-04 PROGRESS HNO ID: [id number] Normal 04-19-2020 [facility] [place] Author: Bo (Cylinder Grinder) Rolando Trevizo ([id number]) Service: ? Author Type: Nurse Practitioner Type: Progress Notes Filed: 04/19/2020 8:58 AM Note Text: Subjective HPI Nontoxic-appearing male presents urgent care with a chief co mplaint rash. Duration of symptoms 1 day. Associated symptoms pain/itching . Patient states that his rash started yesterday initially was itching now more painful. Patient states use of disinfectant wipes for sympto m management no relief. Patient states pain is 5 out of 10 currently. His tory of genital herpes. Patient has been off acyclovir due to elevat ed liver enzymes. Denies recent sick contacts. Denies nausea vomiting fevers chest pain pleuritic pain abdominal pain headaches visual ch anges change in bowel or bladder habit. Patient denies any other rashes o r chief complaints. .Patient presents with: bump on back of left leg: x 1 day PAST MEDICAL HISTORY Diagnosis Date - Chronic mucoid otitis media - Expressive language disorder - Respiratory syncytial virus (RSV) PAST SURGICAL HISTORY Procedure Laterality Date - INCISION EARDRUM,ASPIR,GEN ANESTH Myringotomy/tubes - REPAIR ING HERNIA,5+Y/O,REDUCIBL 1986 Hernia repair, inguinal, bilateral ALLERGIES Benadryl [Diphenhydramine Hcl]; Zithromax [Azithro mycin] MEDICATIONS valACYclovir (VALTREX) 1 gram Take 1 tablet by mouth once da lai. For Suppressive therapy. FAMILY HISTORY Problem Relation Age of Onset - None Mother - None Father - Heart Maternal Grandmother - Hypertension Maternal Grandmother - Hypertension Paternal Grandfather - Diabetes Paternal Grandfather Social History Tobacco Use - Smoking status: Current Every Day Smoker Types: Cigarettes - Smokeless tobacco: Never Used - Tobacco comment: smokes 1-2 per day Substance Use Topics - Alcohol use: No - Drug use: No BP 122/82 Pulse 82 Temp 36.6 ?C (97.8 ?F) (Tympanic) R selene 16 Wt (!) 147.3 kg (324 lb 12.8 oz) Review of Systems Constitutional: Negative for chills, fever and malaise/fatig ue. HENT: Negative for congestion, ear discharge, ear pain, sinu s pain and sore throat. Eyes: Negative for blurred vision, double vision and photoph obia. Respiratory: Negative for cough, sputum production, shortnes s of breath and wheezing. Cardiovascular: Negative for chest pain. Gastrointestinal: Negative for abdominal pain, nausea and vo miting. Genitourinary: Negative. Musculoskeletal: Negative for myalgias. Skin: Positive for itching and rash. Neurological: Negative for dizziness and headaches. Objective Physical Exam Constitutional: He is oriented to person, place, and time an d well-developed, well-nourished, and in no distress. No distr ess. HENT: Head: Normocephalic and atraumatic. Right Ear: Hearing, external ear and ear canal normal. No dr ainage, swelling or tenderness. No decreased hearing is noted. Left Ear: Hearing, tympanic membrane, external ear and ear c anal normal. No drainage, swelling or tenderness. No decreased hearing is noted. Mouth/Throat: Uvula is midline. No trismus in the jaw. No uv [place] swelling. No oropharyngeal exudate, posterior oropharyngeal edema, pos terior oropharyngeal erythema or tonsillar abscesses. Eyes: Pupils are equal, round, and reactive to light. Conjun ctivae are normal. Right eye exhibits no discharge. Left eye exhibits n o discharge. Neck: Normal range of motion. Neck supple. Cardiovascular: Normal rate, regular rhythm and normal heart sounds. Pulmonary/Chest: Effort normal and breath sounds normal. No accessory muscle usage. No tachypnea. No respiratory distress. He has no wheezes. He has no rales. He exhibits no tenderness. Abdominal: Soft. There is no abdominal tenderness. Musculoskeletal: Normal range of motion. General: No tenderness. Lymphadenopathy: Head (right side): No submental, no submandibular, no tonsil lar, no preauricular, no posterior auricular and no occipital adenop athy present. Head (left side): No submental, no submandibular, no tonsill ar, no preauricular, no posterior auricular and no occipital adenop athy present. He has no cervical adenopathy. Right cervical: No superficial cervical and no posterior cer vical adenopathy present. Left cervical: No superficial cervical and no posterior cerv ical adenopathy present. Neurological: He is alert and oriented to person, place, and time. Skin: Skin is warm and dry. Rash noted. No abrasion, no ecch ymosis, no lesion and no petechiae noted. Rash is pustular and vesicula r. He is not diaphoretic. There is erythema. Fluid-filled vesicles in a circular pattern noted posterior aspect left upper leg. 1 cm x 1 cm. No Drainage. Nursing note and vitals reviewed. ASSESSMENT/PLAN: 1. Rash - ICD9: 782.1, ICD10: R21 - WOUND CULTURE AND GRAM STAIN - HSV 1,2/VZV AMP MOLECULAR DETECT Cultures obtained. Patient will use mupirocin until results are received. Suspicious of HSV. Patient was educated on supportive therap ies. Patient will follow up with primary care provider as needed. Patient was instructed to immediately proceed to emergency room for any new, worsening, or symptoms lasting longer than anticipated. The patient's clinical presentation is otherwise unremarkable at this time . Based on exam and clinical finding, the patient is stable for dischar ge. Plan of care was discussed with patient. Patient verbalizes understa nding and agrees to plan of care. This note was generated using [employer] software. It may contain errors in wording, punctuation, or spelling. Bo Marshall APRN.FOLDER HAND hsv1,2/vzv amplif o n 2020-04-19 HSV Type 1, HDA Negative for Herpes Normal 04-02 [facility] [place] Simplex virus Type 1 by [place] ([id number]) Molecular Detection. Comment: Performed By: #### HSVVZV ## ## [facility] [place] [facility] [address] [place] [address] HSV Type 2, Positive for Herpes Critically abnorma l 04-19-2020 [facility] [place] HDA Simplex virus Type C leveland ([id number]) 2 by Molecular Detection. Comment: Performed By: #### HSVVZV ## ## [place] [id number] [place] [id number] Specimen source Nom (Unsp Lesion Normal 04-02 [facility] spec) ([id number]) Comment: Performed By: #### HSVVZV ## ## [place] [address] V Zoster Virus, HDA Negative for Varicella Normal 04-19-2020 [facility] [place] Zoster virus by Veena ahuja ([id number]) Molecular Detection. Comment: Performed By: #### HSVVZV ## ## [place] [address] hepatic functn panel on 2020-04-19 Albumin [Mass/Vol] 4.7 3.9-4.9 g/dL Normal 04-19-2020 [facility] ([id number]) Comment: Performed By: #### HFP #### [place] [address] ALP [Catalytic activity/Vol] 47 38-113 U/L Normal 0 04-19-2020 [facility] ([id number]) Comment: Performed By: #### HFP #### [place] [address] ALT [Catalytic activity/Vol] 102 10-54 U/L High 0 04-19-2020 [facility] ([id number]) Comment: Performed By: #### HFP #### [place] [id number] AST [Catalytic activity/Vol] 69 14-40 U/L High 0 04-19-2020 [facility] ([id number]) Comment: Performed By: #### HFP #### [place] [address] Bilirubin [Mass/Vol] 0.6 0.2-1.3 mg/dL Normal 0 [facility] ([id number]) Comment: Performed By: #### HFP #### [facility] [place] [facility] [address] [place], [place] [address] Bilirubin,Conjugated <0.2 <0.2 Normal 0 [facility] ([id number]) Comment: Performed By: #### HFP #### [facility] [place] [facility] [address] [place], [place] [address] Protein [Mass/Vol] 7.3 6.3-8.0 g/dL Normal 04-19-2020 [facility] ([id number]) Comment: Performed By: #### HFP #### [facility] [place] [facility] [address], [place] [address] cnov on 2020-04-19 CNOV Office Visit (UCWSTR) Normal 04-19-20 [place] [facility] AROLDO PINA ([id number]) 1995 [facility] Date Time Provider Department ([id number]) 04/19/20 7:45 AM BO MARSHALL (FOLDER HAND) [facility] During your visit today, we recorded the following informati on about you: Temperature Pulse Respiration Blood pressure 97.8 degrees 82/minute 16/minute 122/82 Weight 147.3 kg Bo Marshall APRN.SEAN 04/19/2020 8:58 AM Signed Subjective HPI Nontoxic-appearing male presents urgent care with a chief co mplaint rash. Duration of symptoms 1 day. Associated symptoms pain/i tching. Patient states that his rash started yesterday initially was itching now mo re painful. Patient states use of disinfectant wipes for symptom managem ent no relief. Patient states pain is 5 out of 10 currently. History of gen ital herpes. Patient has been off acyclovir due to elevated liver enzym es. Denies recent sick contacts. Denies nausea vomiting fevers chest pain pleu ritic pain abdominal pain headaches visual changes change in bowel or b ladder habit. Patient denies any other rashes or chief complaints. .Patient presents with: bump on back of left leg: x 1 day PAST MEDICAL HISTORY Diagnosis Date - Chronic mucoid otitis media - Expressive language disorder - Respiratory syncytial virus (RSV) PAST SURGICAL HISTORY Procedure Laterality Date - INCISION EARDRUM,ASPIR,GEN ANESTH Myringotomy/tubes - REPAIR ING HERNIA,5+Y/O,REDUCIBL 1986 Hernia repair, inguinal, bilateral ALLERGIES Benadryl [Diphenhydramine Hcl]; Zithromax [Azithro mycin] MEDICATIONS valACYclovir (VALTREX) 1 gram Take 1 tablet by mouth once da lai. For Suppressive therapy. FAMILY HISTORY Problem Relation Age of Onset - None Mother - None Father - Heart Maternal Grandmother - Hypertension Maternal Grandmother - Hypertension Paternal Grandfather - Diabetes Paternal Grandfather Social History Tobacco Use - Smoking status: Current Every Day Smoker Types: Cigarettes - Smokeless tobacco: Never Used - Tobacco comment: smokes 1-2 per day Substance Use Topics - Alcohol use: No - Drug use: No BP 122/82 Pulse 82 Temp 36.6 ?C (97.8 ?F) (Tympanic) Resp 16 Wt (!) 147.3 kg (324 lb 12.8 oz) Review of Systems Constitutional: Negative for chills, fever and malaise/fatig ue. HENT: Negative for congestion, ear discharge, ear pain, si nus pain and sore throat. Eyes: Negative for blurred vision, double vision and photoph obia. Respiratory: Negative for cough, sputum production, shortn ess of breath and wheezing. Cardiovascular: Negative for chest pain. Gastrointestinal: Negative for abdominal pain, nausea and vo miting. Genitourinary: Negative. Musculoskeletal: Negative for myalgias. Skin: Positive for itching and rash. Neurological: Negative for dizziness and headaches. Objective Physical Exam Constitutional: He is oriented to person, place, and time and well-developed, well-nourished, and in no distress. No distress. HENT: Head: Normocephalic and atraumatic. Right Ear: Hearing, external ear and ear canal normal. No drainage, swelling or tenderness. No decreased hearing is noted. Left Ear: Hearing, tympanic membrane, external ear and ear canal normal. No drainage, swelling or tenderness. No decreased hearing is no dann. Mouth/Throat: Uvula is midline. No trismus in the jaw. No uvula swelling. No oropharyngeal exudate, posterior oropharyngeal e johnathan, posterior oropharyngeal erythema or tonsillar abscesses. Eyes: Pupils are equal, round, and react shirley to light. Conjunctivae are normal. Right eye exhibits no discharge. Left eye exhibits no discha rge. Neck: Normal range of motion. Neck supple. Cardiovascular: Normal rate, regular rhythm and normal heart sounds. Pulmonary/Chest: Effort normal and breath sounds leo l. No accessory muscle usage. No tachypnea. No respiratory distress. He has no whee zes. He has no rales. He exhibits no tenderness. Abdominal: Soft. There is no abdominal tenderness. Musculoskeletal: Normal range of motion. General: No tenderness. Lymphadenopathy: Head (right side): No submental, no submandibular, no tonsil lar, no preauricular, no posterior auricular and no occipital adenop athy present. Head (left side): No submental, no submandibular, no tonsill ar, no preauricular, no posterior auricular and no occipital adenop athy present. He has no cervical adenopathy. Right cervical: No superficial cervical and no posterior cer vical adenopathy present. Left cervical: No superficial cervical and no posterior cerv ical adenopathy present. Neurological: He is alert and oriented to person, place, and time. Skin: Skin is warm and dry. Rash noted. No abras ion, no ecchymosis, no lesion and no petechiae noted. Rash is pustular and vesicular. He is not diaphoretic. There is erythema. Fluid-filled vesicles in a circular pattern note d posterior aspect left upper leg. 1 cm x 1 cm. No Drainage. Nursing note and vitals reviewed. ASSESSMENT/PLAN: 1. Rash - ICD9: 782.1, ICD10: R21 - WOUND CULTURE AND GRAM STAIN - HSV 1,2/VZV AMP MOLECULAR DETECT Cultures obtained. Patient will use mupirocin until results are received. Suspicious of HSV. Patient was educated on suppo rtive therapies. Patient will follow up with primary care provider as needed. Patient was instructed to immediately proceed to emergency room for any new, worsening , or symptoms lasting longer than anticipated. The patient's clinical pres entation is otherwise unremarkable at this time. Based on exam and clinical finding, the patient is stable for discharge. Plan of care was discussed with patient. Patient verbalizes understanding and agrees to plan of care. This note was generated using [employer]. It may contain errors in wording, punctuation, or spelling. Bo Marshall APRN.SEAN Marshall APRN.CNP 04/19/2020 8:16 AM Signed Diagnosis: Assessment NONSPECIFIC RASH: Our exam shows you have a rash which has no clear cause. Davis hes can result from infections, allergies, or irritation of the skin by c hemicals or other environmental factors. Rashes can also result from scr atching or rubbing the skin too much to relieve itching. Furthe r medical examination may be needed to identify the specific cause and proper treatment of your ski n rash. You should treat your rash as recommende d by your doctor. If you have itching, you should avoid scratching as much as possible, as th is further damages the skin. Ask your doctor or pharmacist if you have any question s about what topical medicines may help relieve your symptoms . Call your doctor right away if your rash is not better i n 2-3 days, if it worsens, or if there are signs of infection (increased pain, redness, drainage or pus). Referring Provider: SELF [[id number]] Allergies As of Date: 04/19/2020 Noted Allergy Reaction BENADRYL (DIPHENHYDRAMINE HCL) 04/17/2011 14 - Other: See Co mments Comments: Feels like he's jumping out of his skin ZITHROMAX (AZITHROMYCIN) 07/29/2005 Date Reviewed: 04/19/2020 Reviewed by: Bo (Sean) Rolando - Fully Assessed Reason for Visit: bump on back of left leg [Other] Cmt: x 1 day Primary Visit Diagnosis:Rash [R21] Order(s):mupirocin (BACTROBAN) 2 % ointmentApply to affected area three times daily for 5 days.Disp: 30 gRfl: 0 WOUND CULTURE AND GRAM STAIN [SQWCUL] Order #: [id number] HSV 1,2/VZV AMP MOLECULAR DETECT [SQHSVVZV] Order #: [id number] FUTURE Prescriptions as of 04/19/2020 Sig: MUPIROCIN 2 % TOPICAL OINTMENT Apply to affected area three * VALACYCLOVIR 1 GRAM TABLET Take 1 tablet by mouth once d* Patient not taking: Reported on 03/15/2020 Problem List As Of Date 04/19/2020 Noted Resolved PAIN GROIN [R10.9] 11/06/2008 URINARY INCONTINENCE, UNSPECIFIED [R32] 02/07/2009 OBESITY NOS [E66.9] 02/07/2009 Well Adolescent Visit [Z00.129] 02/02/2010 Onychia and paronychia of toe [L03.039] 05/27/2012 Herpes genitalis in men [A60.02] 08/15/2019 Non-alcoholic fatty liver disease [K76.0] 03/16/2020 Elevated liver function tests [R79.89] 03/16/2020 Other instructions from your clinician: Diagnosis: Assessment NONSPECIFIC RASH: Our exam shows you have a rash which has no clear cause. Davis hes can result from infections, allergies, or irritation of the skin by chemicals or other environmental factors. Rashes can also result from scratching or rubbing the skin too much to relieve itching. Further medica l examination may be needed to identify the specific cause and proper bob tment of your skin rash. You should treat your rash as recommended by your doctor. If you have itching, you should avoid scratching as much as possible, as this further damages the skin. Ask your doctor or pharmacist if you have any questions about what topical medicines may help relieve your symptoms. Call your doctor right away if your rash is not better in 2-3 days, if it worsens, or if there are signs of infection (increased pain, redness, drainage or pus). Prescriptions ordered this encounter Disp Refills Start End MUPIROCIN 2 % TOPICAL OINTMENT 30 g 0 04/19/2020 04/24/2020 Route: TOPICAL Sig: Apply to affected area three times daily for 5 days. Letter Text Letter Text Encounter Status:Closed by ROLANDO LEÓN.BO DE JESUS on progress on 2020-05 -15 PROGRESS HNO ID: [id number] Normal 03-16-2020 [facility] [place] Author: Dea Mae III [place] ([id number]) Service: ? Author Type: Physician Type: Progress Notes Filed: 03/16/2020 3:58 PM Note Text: This Team Access Model visit is a phone encounter. It requir ed patient-provider interaction for the medical decision making as documented below. called pt at [phone] SUBJECTIVE: This is a 24 year old male that is here today fo r ER Follow Up. 03/15/20. ER record reviewed. He had acute onset of epigastric discomfort after eating piz za and broccoli salad. Dx of gastritis. 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 No abd pain or nausea or fever or malaise today. 2. Has noted nausea with emesis starting about December. Starte d valtrex end of December. Has elevated LFTs since starting Valtrex. Lab docu mented herpes simplex II infection on genitals. Valtrex stopped 1 wk ago. No emesis or nausea since then. Discussed option of switching to another medication, but he declined and chose to treat episodically rather than preventatively. PAST MEDICAL HISTORY Diagnosis Date - Chronic mucoid otitis media - Expressive language disorder - Respiratory syncytial virus (RSV) Current Outpatient Medications on File Prior to Visit Medication Sig - valACYclovir (VALTREX) 1 gram Take 1 tablet by mouth once daily. For Suppressive therapy. (Patient not taking: Reported on 020 ) No current facility-administered medications on file prior t o visit. FAMILY HISTORY Problem Relation Age of Onset - None Mother - None Father - Heart Maternal Grandmother - Hypertension Maternal Grandmother - Hypertension Paternal Grandfather - Diabetes Paternal Grandfather s.och Social History Tobacco Use - Smoking status: Current Every Day Smoker Types: Cigarettes - Smokeless tobacco: Never Used - Tobacco comment: smokes 1-2 per day Substance Use Topics - Alcohol use: No - Drug use: No There were no vitals taken for this visit. . OBJECTIVE: cheerful, alert, rational, goal oriented ASSESSMENT: elevated liver function tests due to daily valtrex acute gastritis --resolved PLAN: After discussion we mutually decided to limit valtrex to 500 mg q 12 hrs x 3 days only for suppression of recurrence of herpes. recheck liver function tests in 1 mo. limit ETOH intake healthy weight losing diet and regular exercise eat less sugar, bread, potato, pasta, rice, corn, corn syrup , saturated fats Dea Mae III MD ended at 1551 17 min cnpn on 2020-03-16 [facility] Telephone (FAMPWS) Normal 03-16-2020 [place] [facility] PINAAROLDO ([id number]) 1995 [place] Date Time Provider Department ([id number]) 03/16/20 DEA MAE III During your visit today, we recorded the following informati on about you: Pat Sanchez Pss 03/16/2020 9:15 AM Signed Patient was seen at the [facility] Er 03/15/2020. Seema hunter declines to download Embibe chris. Patient is request ing a phone call after work at 2:30 PM Alfredo Porter Ma 03/16/2020 9:26 AM Signed ER records given to provider. Alfredo Mae III MD 03/16/2020 10:07 AM Signed please make this a phone appt DOMINIQUE Lowe MD, Ma 03/16/2020 1:30 PM Signed PATIENT NOTIFIED AND SCHEDULED. Alfredo Porter Ma Allergies As of Date: 03/16/2020 Noted Allergy Reaction BENADRYL (DIPHENHYDRAMINE HCL) 04/17/2011 14 - Other: See Co mments Comments: Feels like he's jumping out of his skin ZITHROMAX (AZITHROMYCIN) 07/29/2005 Date Reviewed: 03/15/2020 Reviewed by: Naomi Overton LPN - Fully Assessed Reason for Visit: Appointment [186] Prescriptions as of 03/16/2020 Sig: VALACYCLOVIR 1 GRAM TABLET Take 1 tablet by mouth once d* Patient not taking: Reported on 03/15/2020 NAPROXEN 500 MG TABLET Take 1 tablet by mouth twice * Patient not taking: Reported on 09/12/2018 Problem List As Of Date 03/16/2020 Noted Resolved PAIN GROIN [R10.9] 11/06/2008 URINARY INCONTINENCE, UNSPECIFIED [R32] 02/07/2009 OBESITY NOS [E66.9] 02/07/2009 Well Adolescent Visit [Z00.129] 02/02/2010 Onychia and paronychia of toe [L03.039] 05/27/2012 Herpes genitalis in men [A60.02] 08/15/2019 Encounter Status:Closed by ALFREDO PORTER MA on 03/16/20 [facility] Telephone (FAMPWS) Normal 03-16-2020 [place] [facility] AROLDO PINA ([id number]) 1995 [facility] Time Provider Department ([id number]) 03/16/20 DIOGENES GAYTAN [facility] During your visit today, we recorded the following informati on about you: Diogenes Gaytan MD 03/16/2020 7:42 AM Signed Ultrasound shows fatty liver. The muscles at top of abdomen look slightly swollen. I also saw he went to ED yesterday. I would h ave him follow up next week with Dr. Mae or Natalie Malik RN 03/16/2020 9:12 AM Signed Pt called, verified by name and birthdate. Patient notified of results and provider's instructions. Patient verbalizes understand ing. Pt transferred to PSR to schedule apt Kellen Malik RN Allergies As of Date: 03/16/2020 Noted Allergy Reaction BENADRYL (DIPHENHYDRAMINE HCL) 04/17/2011 14 - Other: See Co mments Comments: Feels like he's jumping out of his skin ZITHROMAX (AZITHROMYCIN) 07/29/2005 Date Reviewed: 03/15/2020 Reviewed by: Naomi Overton LPN - Fully Assessed Reason for Visit: Results [95] Prescriptions as of 03/16/2020 Sig: VALACYCLOVIR 1 GRAM TABLET Take 1 tablet by mouth once d* Patient not taking: Reported on 03/15/2020 NAPROXEN 500 MG TABLET Take 1 tablet by mouth twice * Patient not taking: Reported on 09/12/2018 Problem List As Of Date 03/16/2020 Noted Resolved PAIN GROIN [R10.9] 11/06/2008 URINARY INCONTINENCE, UNSPECIFIED [R32] 02/07/2009 OBESITY NOS [E66.9] 02/07/2009 Well Adolescent Visit [Z00.129] 02/02/2010 Onychia and paronychia of toe [L03.039] 05/27/2012 Herpes genitalis in men [A60.02] 08/15/2019 Encounter Status:Closed by KELLEN MALIK RN on 03/16/20 us abd spleen -nb o n 2020-03-15 US ABD SPLEEN * * *Final Report* * * Normal [facility] [place] - DATE OF EXAM: Mar 15 2020 3:36PM [place] ([id number]) WRU 1232 - US ABD SPLEEN -NB / PROCEDURE REASON: Elevated liver enzymes * * * * Physician Interpretation * * * * EXAMINATION: RIGHT UPPER QUADRANT AND SPLEEN ULTRASOUND CLINICAL HISTORY: Abnormal liver function tests TECHNIQUE: Sonography of the right upper quadrant and spleen was performed. Images were obtained and stored in a permanent ar chive. MQ: URUQ_2 COMPARISON: None. RESULT: Pancreas: Could not be visualized due to overlying bowel gas . Liver: Echotexture: Normal, homogeneous. Echogenicity: Increased Surface contour: Smooth Lesions: Hypoechoic area along the gallbladder fossa most li shena represents focal fatty sparing. Biliary: No intrahepatic biliary duct dilation. CBD: 0.2 cm at the hilum. Gallbladder: Normal caliber -Contents: No cholelithiasis -Wall: Normal -Other: No pericholecystic fluid. Right Kidney: No hydronephrosis. Ascites: None. Spleen: The craniocaudal length of the spleen is 16.2 cm, en larged. There are no splenic lesions. Left kidney: No hydronephrosis Anterior abdominal wall muscles inferior to the xiphoid proc ess have a heterogeneous appearance. IMPRESSION: 1. Diffuse fatty infiltration of the liver with focal sparin g adjacent to the gallbladder fossa 2. Splenomegaly 3. Heterogeneous appearance to the muscles of the anterior a bdominal wall inferior to the xiphoid process, possibly due to edema. This persists, further imaging, such as CT scan can be performed. Structural Draftsman: SHELLI Transcribe Date/Time: Mar 15 2020 3:37P Dictated by : DONAVON POZO MD This examination was interpreted and the report reviewed and electronically signed by: DONAVON POZO MD on Mar 15 2020 3:51PM EST [id number] us abd right upper quadrant on 2020-03-15 US ABD RIGHT * * *Final Report* * * Normal 03-02 [facility] [place] UPPER QUADRANT DATE OF EXAM: Mar 15 2020 3:36PM [place] ([id number]) WRU 1032 - US ABD RIGHT UPPER QUADRANT / 04 PROCEDURE REASON: Elevated liver enzymes * * * * Physician Interpretation * * * * EXAMINATION: RIGHT UPPER QUADRANT AND SPLEEN ULTRASOUND CLINICAL HISTORY: Abnormal liver function tests TECHNIQUE: Sonography of the right upper quadrant and spleen was performed. Images were obtained and stored in a permanent ar chive. MQ: URUQ_2 COMPARISON: None. RESULT: Pancreas: Could not be visualized due to overlying bowel gas . Liver: Echotexture: Normal, homogeneous. Echogenicity: Increased Surface contour: Smooth Lesions: Hypoechoic area along the gallbladder fossa most li shena represents focal fatty sparing. Biliary: No intrahepatic biliary duct dilation. CBD: 0.2 cm at the hilum. Gallbladder: Normal caliber -Contents: No cholelithiasis -Wall: Normal -Other: No pericholecystic fluid. Right Kidney: No hydronephrosis. Ascites: None. Spleen: The craniocaudal length of the spleen is 16.2 cm, en larged. There are no splenic lesions. Left kidney: No hydronephrosis Anterior abdominal wall muscles inferior to the xiphoid proc ess have a heterogeneous appearance. IMPRESSION: 1. Diffuse fatty infiltration of the liver with focal sparin g adjacent to the gallbladder fossa 2. Splenomegaly 3. Heterogeneous appearance to the muscles of the anterior a bdominal wall inferior to the xiphoid process, possibly due to edema. This persists, further imaging, such as CT scan can be performed. Structural Draftsman: [facility] Transcribe Date/Time: Mar 15 2020 3:37P Dictated by : DONAVON POZO MD This examination was interpreted and the report reviewed and electronically signed by: DONAVON POZO MD on Mar 15 2020 3:51PM EST [id number] progress on 2020-03 PROGRESS HNO ID: [id number] Normal 03-15-2020 [facility] [place] Author: Tara Burch) Edith Trevizo ([id number]) Service: ? Author Type: Cushion Assembler Type: Progress Notes Filed: 03/15/2020 3:37 PM Note Text: Radiology Service Progress Note PATIENT NAME: Aroldo Pina DATE OF SERVICE: March 15, 2020 TIME: 3:37 PM PATIENT IDENTITY VERIFICATION COMPLETED USING TWO (2) IDENTI FIERS: Name and Date of confirmed by patient verbally. FALL SCREENING: Has the patient had 2 falls in the last year or 1 fall with injury or currently using an Ambulatory Assistive Devic e (Walker, Cane, Wheelchair, Crutches, etc.)? No PATIENT GENDER DATA: Male PATIENT RELEVANT IMPLANT DATA REVIEWED: Not Applicable RADIOLOGY DEPARTMENT: Ultrasound PERIPHERAL IV DATA: Not applicable SIGNED BY: TARA TORRES RDMS RVT March 15, 2020 3:37 PM PROGRESS HNO ID: [id number] Normal 03-15-2020 [facility] [place] Author: Kiko Russ [place] ([id number]) Service: ? Author Type: Physician Type: Progress Notes Filed: 03/15/2020 10:56 AM Note Text: Patient presents with: center lower chest pain and vomiting: symptoms started today at work HPI: Feeling sick beginning at work today. Positive symptoms: sharp pain below the xiphoid, vomiting, e levated LFTs this spring, Negative symptoms: Cough, Shortness of breath, Fever, Diarrh ea, known sick contacts, OTC: MEDICATIONS: Current Outpatient Medications Medication Sig - valACYclovir (VALTREX) 1 gram Take 1 tablet by mouth once daily. For Suppressive therapy. (Patient not taking: Reported on 020 ) - naproxen (NAPROSYN) 500 mg tablet Take 1 tablet by mouth t wice daily as needed (for pain/inflammation). Take with food. (Patient not taking: Reported on 09/12/2018 ) No current facility-administered medications for this visit. ALLERGIES: ALLERGIES Allergen Reactions - Benadryl [Diphenhyd* Other: See Comments Feels like he's jumping out of his skin - Zithromax [Azithrom* VITALS: BP 132/82 Pulse 83 Temp 36.7 ?C (98 ?F) (Tympanic) Res p 18 Wt (!) 148.8 kg (328 lb) SpO2 97% PHYSICAL EXAM: GEN: mildly ill appearing, somewhat uncomfortable pressing a nd rubbing the xiphoid area HEENT: EOMI, conjunctiva clear LUNGS: No coughing or wheezing, no increased WOB NEURO: Alert, oriented x 3, normal gait ASSESSMENT/PLAN: 1. Epigastric pain - ICD9: 789.06, ICD10: R10.13 (primary di agnosis) 2. Nausea and vomiting, intractability of vomiting not speci fied, unspecified vomiting type - ICD9: 787.01, ICD10: R11.2 Sent to ER to evaluate for acute pancreatitis/cholelithiasis . Low risk for cardiac source. He will transport himself now. Report se nt to [facility] electronically by ER Passport. Kiko Russ MD cnov on 2020-03-15 CNOV Office Visit (UCWSTR) Normal 03-15-[address] [place] [address] [facility] AROLDO PINA W ([id number]) 1995 [facility] Date Time Provider Department ([id number]) 03/15/20 10:30 AM KIKO RUSS [facility] During your visit today, we recorded the following informati on about you: Temperature Pulse Respiration Blood pressure 98 degrees 83/minute 18/minute 132/82 Weight 148.8 kg Kiko Russ MD 03/15/2020 10:56 AM Signed Patient presents with: center lower chest pain and vomiting: symptoms started today at work HPI: Feeling sick beginning at work today. Positive symptoms: sharp pain below the xiphoid, vomiting, elevated LFTs this spring, Negative symptoms: Cough, Shortness of breath, Fever, Diarrh ea, known sick contacts, OTC: MEDICATIONS: Current Outpatient Medications Medication Sig - valACYclovir (VALTREX) 1 gram Take 1 tablet by mouth once daily. For Suppressive therapy. (Patient not taking: Reported on 020 ) - naproxen (NAPROSYN) 500 mg tablet Take 1 tablet by mouth t wice daily as needed (for pain/inflammation). Take with food. (Patient not taking: Reported on 09/12/2018 ) No current facility-administered medications for this visit. ALLERGIES: ALLERGIES Allergen Reactions - Benadryl [Diphenhyd* Other: See Comments Feels like he's jumping out of his skin - Zithromax [Azithrom* VITALS: BP 132/82 Pulse 83 Temp 36.7 ?C (98 ?F) (Tympanic) Res p 18 Wt (!) 148.8 kg (328 lb) SpO2 97% PHYSICAL EXAM: GEN: mildly ill appearing, somewhat uncomfortable pressing a nd rubbing the xiphoid area HEENT: EOMI, conjunctiva clear LUNGS: No coughing or wheezing, no increased WOB NEURO: Alert, oriented x 3, normal gait ASSESSMENT/PLAN: 1. Epigastric pain - ICD9: 789.06, ICD10: R10.13 (primary di agnosis) 2. Nausea and vomiting, intractability of vomiti ng not specified, unspecified vomiting type - ICD9: 787.01, ICD10: R11.2 Sent to ER to evaluate for acute pancreatitis/cholelithiasis . Low risk for cardiac source. He will transport himself now. Report sent t o [facility] electronically by ER Passport. Kiko Russ MD Referring Provider: SELF [[id number]] Allergies As of Date: 03/15/2020 Noted Allergy Reaction BENADRYL (DIPHENHYDRAMINE HCL) 04/17/2011 14 - Other: See Co mments Comments: Feels like he's jumping out of his skin ZITHROMAX (AZITHROMYCIN) 07/29/2005 Date Reviewed: 03/15/2020 Reviewed by: Naomi Overton LPN - Fully Assessed Reason for Visit: center lower chest pain and vomiting [Other] Cmt: symptoms started today at work Primary Visit Diagnosis:Epigastric pain [R10.13] Other Visit Diagnosis:Nausea and vomiting, intractability of vomiting not specified, unspecified vomiting type [R11.2] Prescriptions as of 03/15/2020 Sig: VALACYCLOVIR 1 GRAM TABLET Take 1 tablet by mouth once d* Patient not taking: Reported on 03/15/2020 NAPROXEN 500 MG TABLET Take 1 tablet by mouth twice * Patient not taking: Reported on 09/12/2018 Problem List As Of Date 03/15/2020 Noted Resolved PAIN GROIN [R10.9] 11/06/2008 URINARY INCONTINENCE, UNSPECIFIED [R32] 02/07/2009 OBESITY NOS [E66.9] 02/07/2009 Well Adolescent Visit [Z00.129] 02/02/2010 Onychia and paronychia of toe [L03.039] 05/27/2012 Herpes genitalis in men [A60.02] 08/15/2019 Encounter Status:Closed by KIKO RUSS MD on 03/15/20 [facility] on 2020-03-12 [facility] Telephone (FAMPWS) Normal 03-12-2020 [place] [facility] ([id number]) 1995 [facility] Date Time Provider Department ([id number]) 03/12/20 DIOGENES GAYTAN During your visit today, we recorded the following informati on about you: Diogenes Gaytan MD 03/12/2020 7:56 AM Signed Liver enzymes are a little better. Hepatitis panel is negative. To be on the safe side. Recheck liver function in one month. Check liver ultrasound. Again, limit any alcohol and tylenol. Aleida Walsh LPN 03/12/2020 8:21 AM Signed Unable to leave voicemail box is full. Kellen Malik RN 03/12/2020 9:07 AM Signed Pt called, verified by name and birthdate. Patient notified of results and provider's instructions. Patient verbali zes understanding. Offered to transfer to schedule ultrasound but pt declined states he will call b arin Richter, MSN GEAR ROOM KEEPER.FOLDER HAND 03/12/2020 10:47 AM Signed Please contact patient again, let him know the V altrex he is taking may cause an elevation in his liver function tests. Recommend he hold and not take the Valtrex and then recheck liver function labs again in one month as ordered. We don't have any labs to confirm what his liver enzymes were prior to starting the Valtrex for suppressive therapy. We may need to sw itch to an alternative suppressive medication in the future. Natlaie Richter, MSN GEAR ROOM KEEPER.SEAN Leigh LPN 03/12/2020 11:45 AM Signed Pt advised of Natalie's message, verbalizes unders tanding. Pt states that he is at work and is going to call back to [facility]. Chandler Leigh LPN Allergies As of Date: 03/12/2020 Noted Allergy Reaction BENADRYL (DIPHENHYDRAMINE HCL) 04/17/2011 14 - Other: See Co mments Comments: Feels like he's jumping out of his skin ZITHROMAX (AZITHROMYCIN) 07/29/2005 Date Reviewed: 09/28/2019 Reviewed by: Rosemary Kumar Ma - Fully Assessed Reason for Visit: Results [95] Primary Visit Diagnosis:Elevated liver enzymes [R74.8] Order(s):US ABD RT UPPER QUADRANT [1806636] Order #: [id number] FUTURE HEPATIC FUNCTION PNL [SQHFP] Order #: [id number] FUTURE Prescriptions as of 03/12/2020 Sig: VALACYCLOVIR 1 GRAM TABLET Take 1 tablet by mouth once d* NAPROXEN 500 MG TABLET Take 1 tablet by mouth twice * Patient not taking: Reported on 09/12/2018 Problem List As Of Date 03/12/2020 Noted Resolved PAIN GROIN [R10.9] 11/06/2008 URINARY INCONTINENCE, UNSPECIFIED [R32] 02/07/2009 OBESITY NOS [E66.9] 02/07/2009 Well Adolescent Visit [Z00.129] 02/02/2010 Onychia and paronychia of toe [L03.039] 05/27/2012 Herpes genitalis in men [A60.02] 08/15/2019 Encounter Status:Closed by KELLEN MALIK RN on 03/12/20 hepatitis acute rna on 2020-03-09 HBsAg Negative Negative Normal 03-09-2020 [facility] ([id number]) Comment: Performed By: #### Neto GALEANA ####[place] [address] [address], [place] [phone] Hep B Core Ab, IgM Negative Negative Normal 03-09-2020 [facility] ([id number]) Comment: Performed By: #### Neto GALEANA ####[place] [address] [address], [place] [phone]- [phone] Hepatitis A Ab IgM Negative Negative Normal 03-09-2020 [facility] ([id number]) Comment: Performed By: #### Neto GALEANA FP ####[place] [address] [address], [place] [id number]- [phone] Hepatitis C RNA HCV RNA not detected by Normal 03-09-2020 [facility] ([id number]) Comment: Result Comment: Reference Ra nge: Negative for HCV RNA The Linear Range of this ass ay is 15 IU/mL to 100,000,000 IU/mL. Performed By: #### Neto GALEANA ####[place] [address] [address], [place] [phone]- [phone] hepatic functn panel on 2020-03-09 Albumin [Mass/Vol] 4.6 3.9-4.9 g/dL Normal 03-09-2020 [facility] ([id number]) Comment: Performed By: #### Neto GALEANA FP ####[facility], [place] [phone]- [phone] ALP [Catalytic activity/Vol] 72 38-113 U/L Normal 0 03-09-2020 [facility] ([id number]) Comment: Performed By: #### Neto GALEANA FP ####[place] [address] [address], [place] [phone]- [phone] ALT [Catalytic activity/Vol] 96 10-54 U/L High 0 03-09-2020 [facility] ([id number]) Comment: Performed By: #### Neto GALEANA FP ####[facility] [place] [address], [place] [phone]- [phone] AST [Catalytic activity/Vol] 49 14-40 U/L High 0 03-09-2020 [facility] ([id number]) Comment: Performed By: #### Neto GALEANA FP ####[place] [address] [address], [place] [phone]- [phone] Bilirubin [Mass/Vol] 0.3 0.2-1.3 mg/dL Normal 0 [facility] ([id number]) Comment: Performed By: #### Neto GALEANA FP ####[place] [address] [address], [place] [phone]- [phone] Bilirubin,Conjugated <0.2 <0.2 Normal 0 [facility] ([id number]) Comment: Performed By: #### Neto GALEANA FP ####[place] [address] [address], [place] [phone]- [phone] Protein [Mass/Vol] 6.8 6.3-8.0 g/dL Normal 03-09-2020 [facility] ([id number]) Comment: Performed By: ###Neto STEEN FP ####[place] [address] [address], [place] [phone]- [phone] cnpn on 2020-03-02 [facility] Telephone (GERARDO) Normal 03-02-2020 [place] AROLDO Salcido ([id number]) 1995 [facility] Date Time Provider Department ([id number]) 03/02/20 CHRISTINE, DIOGENES J FAMPWS During your visit today, we recorded the following informati on about you: Diogenes Gaytan MD 03/02/2020 7:49 AM Signed His liver enzymes are up. Make sure not drinking etoh. Reche ck labs in one week. Call if any abd pain, nausea or vomiting Amy Weathers LPN 03/02/2020 10:27 AM Signed Attempted to reach patient but no answer and unable to leave a message. Poncho Bush 03/02/2020 10:37 AM Signed Patient returned call and advised of provider's message with voiced understanding. Patient denies any abdominal pain, nausea, or vomiting. Allergies As of Date: 03/02/2020 Noted Allergy Reaction BENADRYL (DIPHENHYDRAMINE HCL) 04/17/2011 14 - Other: See Co mments Comments: Feels like he's jumping out of his skin ZITHROMAX (AZITHROMYCIN) 07/29/2005 Date Reviewed: 09/28/2019 Reviewed by: Rosemary Kumar Ma - Fully Assessed Reason for Visit: Results [95] Primary Visit Diagnosis:Elevated liver enzymes [R74.8] Order(s):HEPATIC FUNCTION PNL [SQHFP] Order #: [id number] FU TURE HEP ACUTE PANEL/RNA [SQHACRNA] Order #: [id number] FUTURE Prescriptions as of 03/02/2020 Sig: VALACYCLOVIR 1 GRAM TABLET Take 1 tablet by mouth once d* NAPROXEN 500 MG TABLET Take 1 tablet by mouth twice * Patient not taking: Reported on 09/12/2018 Problem List As Of Date 03/02/2020 Noted Resolved PAIN GROIN [R10.9] 11/06/2008 URINARY INCONTINENCE, UNSPECIFIED [R32] 02/07/2009 OBESITY NOS [E66.9] 02/07/2009 Well Adolescent Visit [Z00.129] 02/02/2010 Onychia and paronychia of toe [L03.039] 05/27/2012 Herpes genitalis in men [A60.02] 08/15/2019 Encounter Status:Closed by PONCHO BUSH on 03/02/20 comp metabolic panel on 2020-03-01 Albumin [Mass/Vol] 4.8 3.9-4.9 g/dL Normal 03-01-2020 [facility] ([id number]) Comment: Performed By: #### CMP ####C [address] [phone] ALP [Catalytic activity/Vol] 58 38-113 U/L Normal 0 03-01-2020 [facility] ([id number]) Comment: Performed By: #### CMP ####C [address] [phone] ALT [Catalytic activity/Vol] 110 10-54 U/L High 0 03-01-2020 [facility] ([id number]) Comment: Performed By: #### CMP ####C [address] [phone] Anion gap [Moles/Vol] 17 9-18 mmol/L Normal 03-01-20 [facility] ([id number]) Comment: Performed By: #### CMP ####C [address] [phone] AST [Catalytic activity/Vol] 62 14-40 U/L High 0 03-01-2020 [facility] ([id number]) Comment: Performed By: #### CMP ####C [address] [phone] Bilirubin [Mass/Vol] 0.3 0.2-1.3 mg/dL Normal 0 [facility] ([id number]) Comment: Performed By: #### CMP ####C [address] [phone] Calcium [Mass/Vol] 9.9 8.5-10.2 mg/dL Normal 03-01-2020 [facility] ([id number]) Comment: Performed By: #### CMP ####C [address] [phone] Chloride [Moles/Vol] 101 97-105 mmol/L Normal 0 [facility] (05791) Comment: Performed By: #### CMP ####C [facility] [place], [place] [phone]- [phone] CO2 [Moles/Vol] 23 22-30 mmol/L Normal 03-01-[address] [facility] ([id number]) Comment: Performed By: #### CMP ####C [facility] [place] [address] [phone] Creatinine [Mass/Vol] 0.82 0.73-1.22 mg/dL Normal 03-01-20 20 [facility] ([id number]) Comment: Performed By: #### CMP ####C [address] [phone] eGFR- Amer. >60 Normal 03-01-2020 [facility] (21468) Comment: Performed By: #### CMP ####C [place] [phone]- [phone] GFR/1.73 sq M predicted >60 mL/min/{1.73_m2} Normal 03-01-2020 [facility] [place] among non-blacks [facility] [facility] ([id number]) (S/P/Bld) [Vol rate/Area] Comment: Result Comment: eGFR (Estima dann GFR) Units of measure: mL/min/1.73 meters squared eGFR is derived from the ree xpressed MDRD Study equation using the following parameters: serum creatinine, age, gender and race. The creatinine assay has been calibrated to be traceable to IDMS. An eGFR <60 mL/min/1.73m2 fo r >3 months is consistent with chronic kidney disease. Refer to KDOQI guidelines for clinical interpretation. In patients with unstable re nal function, e.g. those with acute kidney injury, the eGFR may not accurately reflect actual GFR. Performed By: #### CMP ####C [id number] [place], [place] [phone] Glucose [Mass/Vol] 87 74-99 mg/dL Normal 03-01-2020 [facility] ([id number]) Comment: Result Comment: The [place] Diabetes Association (ADA) provides guidance for cutoff values for fasting glucose and random glucose. The ADA defines fasting as no caloric intake for at least 8 hours. Fas ting plasma glucose results between 100 to 125 mg/dL indicate increased risk for diabetes (prediabetes). Fasting plasma glucose resul ts greater than or equal to 126 mg/dL meet the criteria for diagnosis of diabetes. In the absence of unequivocal hyperglycemia, results should be confirmed by repeat testing. In a patient with classic s ymptoms of hyperglycemia or hyperglycemic crisis, random plasma glucose results greater than or equal to 200 mg/dL meet the criteria for diagnosis of diabetes. Reference: Standards of [facility] Care in Diabetes 2016, [place] Diabetes Association. Diabetes Care. 2016.39(Suppl 1). Performed By: #### CMP ####C [address] [phone] Potassium [Moles/Vol] 3.9 3.7-5.1 mmol/L Normal 03-01-20 [facility] ([id number]) Comment: Performed By: #### CMP ####C [address] [phone] Protein [Mass/Vol] 7.2 6.3-8.0 g/dL Normal 03-01-2020 [facility] ([id number]) Comment: Performed By: #### CMP ####C [address] [phone] Sodium [Moles/Vol] 141 136-144 mmol/L Normal 03-01-2020 [facility] ([id number]) Comment: Performed By: #### CMP ####C [address] [phone] Urea nitrogen [Mass/Vol] 7 9-24 mg/dL Low 03-01 [facility] ([id number]) Comment: Performed By: #### CMP ####C [address] [phone] progress on 2020-01 PROGRESS HNO ID: [id number] Normal 01-31-2020 [facility] [place] Author: Natalie Unique Richter [place] ([id number]) Service: ? Author Type: Nurse Practitioner Type: Progress Notes Filed: 01/31/2020 11:23 AM Note Text: This Team Access Model visit is a phone encounter. It requir ed patient-provider interaction for the medical decision making as documented below. 01/31/2020 Patient presents with: Herpes simplex SUBJECTIVE: This is a 24 year old that is here today for Abo ve Complaints. 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 Painful, no fever or difficulty urinating. Has been out of V altrex. Notes been very stressed lately and feels he's had >10 outbreaks o elvis the past year. Would like to take suppressive therapy. Reports he jame erates medication well, denies side effects. PAST MEDICAL HISTORY Diagnosis Date - Chronic mucoid otitis media - Expressive language disorder - Respiratory syncytial virus (RSV) ALLERGIES Benadryl [Diphenhydramine Hcl]; Zithromax [Azithro mycin] MEDICATIONS Current Outpatient Medications Medication Sig - naproxen (NAPROSYN) 500 mg tablet Take 1 tablet by mouth t wice daily as needed (for pain/inflammation). Take with food. (Patient not taking: Reported on 09/12/2018 ) No current facility-administered medications for this visit. SOCIAL HISTORY Social History Tobacco Use - Smoking status: Current Every Day Smoker Types: Cigarettes - Smokeless tobacco: Never Used - Tobacco comment: smokes 1-2 per day Substance Use Topics - Alcohol use: No - Drug use: No REVIEW OF SYSTEMS See HPI OBJECTIVE: There were no vitals taken for this visit. EXAM: There were no vitals taken for this visit. Deferred physical exam as visit was completed over the phone /[employer]. Virtual visit completed using video, limited exam completed. General Appearance: Patient sounds or appears ill: No Speaking in complete sentences, Psych: Attitude - cooperative, easily engaged in conversatio n Affect - euthymic, normal mood Mental status: Alert, attentive. Speech is clear and fluent with good repetition, comprehension Health Maintenance List HIV SCREENING due on 2014 ONE PNEUMOVAX PRIOR TO AGE 65 due on 2015 INFLUENZA(1) due on 07/03/2019 DTAP,TDAP,TD(7 - Td) due on 03/16/2020 HPV VACCINE Completed Data reviewed Last 5 Encounter BP Readings: Date: BP: 09/28/2019 128/82 09/14/2018 110/80 09/12/2018 118/88 09/06/2017 110/80 12/15/2016 138/84 BMI Readings from Last 5 Encounters: 01/05/13 : 37.11 kg/m? (>99 %, Z= 2.56)* 04/17/11 : 28.35 kg/m? (97 %, Z= 1.90)* 02/02/10 : 5512.12 kg/m? (>99 %, Z= 3.22)* 02/07/09 : 30.55 kg/m? (99 %, Z= 2.26)* 12/31/07 : 29.08 kg/m? (99 %, Z= 2.25)* * Growth percentiles are based on [facility] (Boys, 2-20 Years) ashwini a. Last 5 Encounter Wt Readings: Date: Wt: 09/28/2019 140.6 kg (310 lb) 09/14/2018 135.2 kg (298 lb) 09/12/2018 134.2 kg (295 lb 12.8 oz) 09/06/2017 146.5 kg (323 lb) 12/13/2016 144.2 kg (318 lb) Medication and allergy list reviewed, reconciled and updated 01/31/2020 ASSESSMENT/PLAN: 1. Herpes simplex infection of penis - ICD9: 054.13, ICD10: A60.01 -Will initiate treatment and suppressive therapy. Patient wi shes to continue with Valtrex even though discussed less expensive o ption of Acyclovir. Recommend he come in and get CMP in 1 month checking renal f unction, The patient indicates understanding of these issues and agrees w ith the plan. -Continue consistent condom use to prevent shedding virus to partner. - VALACYCLOVIR 1 GRAM TABLET - COMP METABOLIC PANEL Natalie Richter, MSN GEAR ROOM KEEPER.FOLDER HAND Total appointment time on phone with patient = 5-10 minutes cnpn on 2020-01-31 CNPN Telephone (FAMPWS) Normal 01-31-2020 [place] [facility] AROLDO PINA ([id number]) 1995 [facility] Date Time Provider Department ([id number]) 01/31/20 DEA MAE III During your visit today, we recorded the following informati on about you: Kellen Malik RN 01/31/2020 10:34 AM Addendum Pt called, verified by name and birthdate. Pt wanted to know if he can get refill on Valtrex. Informed him rx was discontinued. Offered pt an apt to discuss current issue with taryn lopez to see if needs a new rx. Pt states he will go to urgent care. Pt hung up phone Kellen Malik RN Allergies As of Date: 01/31/2020 Noted Allergy Reaction BENADRYL (DIPHENHYDRAMINE HCL) 04/17/2011 14 - Other: See Co mments Comments: Feels like he's jumping out of his skin ZITHROMAX (AZITHROMYCIN) 07/29/2005 Date Reviewed: 09/28/2019 Reviewed by: Rosemary Kumar Ma - Fully Assessed Reason for Visit: Patient Question [1477] Prescriptions as of 01/31/2020 Sig: NAPROXEN 500 MG TABLET Take 1 tablet by mouth twice * Patient not taking: Reported on 09/12/2018 Problem List As Of Date 01/31/2020 Noted Resolved PAIN GROIN [R10.9] 11/06/2008 URINARY INCONTINENCE, UNSPECIFIED [R32] 02/07/2009 OBESITY NOS [E66.9] 02/07/2009 Well Adolescent Visit [Z00.129] 02/02/2010 Onychia and paronychia of toe [L03.039] 05/27/2012 Herpes genitalis in men [A60.02] 08/15/2019 Encounter Status:Closed by KELLEN MALIK RN on 01/31/20 progress on 2019-09 PROGRESS HNO ID: [id number] Normal 09-28-2019 [facility] [place] Author: Edenilson Snow) Abigail Trevizo ([id number]) Service: ? Author Type: Physician Street Superintendent Type: Progress Notes Filed: 09/28/2019 4:14 PM Note Text: 09/28/2019 Patient presents with: Back Pain: upper right shoulder blade area x today SUBJECTIVE: This is a 23 year old that is here today for Com plaint(s) of right upper back and shoulder blade pain. Does a lot of repe titive lifting at his job. States he was seen and evaluated by a iropractor today and dx with a sprain. Here today for a work note. Taki ng tylenol/motrin which improves sx temporarily. Denies SOB, in jury/trauma, numbness/tingling, chest pain. PAST MEDICAL HISTORY Diagnosis Date - Chronic mucoid otitis media - Expressive language disorder - Respiratory syncytial virus (RSV) ALLERGIES Benadryl [Diphenhydramine Hcl]; Zithromax [Azithro mycin] MEDICATIONS Current Outpatient Medications Medication Sig - naproxen (NAPROSYN) 500 mg tablet Take 1 tablet by mouth t wice daily as needed (for pain/inflammation). Take with food. (Patient not taking: Reported on 09/12/2018 ) No current facility-administered medications for this visit. SOCIAL HISTORY Social History Tobacco Use - Smoking status: Current Every Day Smoker Types: Cigarettes - Smokeless tobacco: Never Used - Tobacco comment: smokes 1-2 per day Substance Use Topics - Alcohol use: No - Drug use: No REVIEW OF SYSTEMS See HPI OBJECTIVE: BP 128/82 Pulse 78 Temp 36.6 ?C (97.8 ?F) (Tympanic) R selene 16 Wt (!) 140.6 kg (310 lb) APPEARANCE Well appearing, alert, in no acute distress, well -hydrated, well nourished. BACK: Normal exam, no vertebral TTP. + mild right TTP over t rapezius. EXTREMITIES Extremities normal, No deformities, No skin disc oloration, No edema and Normal pulses bilaterally. ASSESSMENT/PLAN: 1. Upper back strain, initial encounter - ICD9: 847.1, ICD10 : S29.012A Ice/heat Tylenol/motrin Note for work printed F/u in 5-7 days if not improving, sooner if worsening The patient indicates understanding of these issues and agre es with the plan. Reviewed red flags and when to seek care sooner. Edenilson Washburn PA-C cnov on 2019-09-28 CNOV Office Visit (WSTR) Normal 09-28-20 [facility] AROLDO PINA ([id number]) 1995 [place] Date Time Provider Department ([id number]) 09/28/19 12:45 PM EDENILSON WASHBURN) [facility] During your visit today, we recorded the following informati on about you: Temperature Pulse Respiration Blood pressure 97.8 degrees 78/minute 16/minute 128/82 Weight 140.6 kg Edenilson Washburn PA-C 09/28/2019 4:14 PM Signed 09/28/2019 Patient presents with: Back Pain: upper right shoulder blade area x today SUBJECTIVE: This is a 23 year old that i s here today for Complaint(s) of right upper back and shoulder blade pain. Does a lot of repetiti ve lifting at his job. States he was seen and evaluated by a chiropractor to day and dx with a sprain. Here today for a work note. Taking tylenol/motrin which improves sx temporarily. Denies SOB, injury/trauma, numbness/tingling, c hest pain. PAST MEDICAL HISTORY Diagnosis Date - Chronic mucoid otitis media - Expressive language disorder - Respiratory syncytial virus (RSV) ALLERGIES Benadryl [Diphenhydramine Hcl]; Zithromax [Azithro mycin] MEDICATIONS Current Outpatient Medications Medication Sig - naproxen (NAPROSYN) 500 mg tablet Take 1 tablet by mouth t wice daily as needed (for pain/inflammation). Take with food. (Patient not taking: Reported on 09/12/2018 ) No current facility-administered medications for this visit. SOCIAL HISTORY Social History Tobacco Use - Smoking status: Current Every Day Smoker Types: Cigarettes - Smokeless tobacco: Never Used - Tobacco comment: smokes 1-2 per day Substance Use Topics - Alcohol use: No - Drug use: No REVIEW OF SYSTEMS See HPI OBJECTIVE: BP 128/82 Pulse 78 Temp 36.6 ?C (97.8 ?F) (Tympanic) Resp 16 Wt (!) 140.6 kg (310 lb) APPEARANCE Well appearing, alert, in no acute distress, we ll-hydrated, well nourished. BACK: Normal exam, no vertebral TTP. + mild right TTP over t rapezius. EXTREMITIES Extremities norm al, No deformities, No skin discoloration, No edema and Normal pulses bilaterally. ASSESSMENT/PLAN: 1. Upper back strain, initial encounter - ICD9: 847.1, ICD10 : S29.012A Ice/heat Tylenol/motrin Note for work printed F/u in 5-7 days if not improving, sooner if worsening The patient indicates understanding of these iss ues and agrees with the plan. Reviewed red flags and when to seek care sooner. Edenilson Washburn PA-C Referring Provider: SELF [200] Allergies As of Date: 09/28/2019 Noted Allergy Reaction BENADRYL (DIPHENHYDRAMINE HCL) 04/17/2011 14 - Other: See Co mments Comments: Feels like he's jumping out of his skin ZITHROMAX (AZITHROMYCIN) 07/29/2005 Date Reviewed: 09/28/2019 Reviewed by: Rosemary Kumar Ma - Fully Assessed Reason for Visit: Back Pain [12] Cmt: upper right shoulder blade area x today Primary Visit Diagnosis:Upper back strain, initial encounter [S29.012A] Prescriptions as of 09/28/2019 Sig: NAPROXEN 500 MG TABLET Take 1 tablet by mouth twice * Patient not taking: Reported on 09/12/2018 Problem List As Of Date 09/28/2019 Noted Resolved PAIN GROIN [R10.9] 11/06/2008 URINARY INCONTINENCE, UNSPECIFIED [R32] 02/07/2009 OBESITY NOS [E66.9] 02/07/2009 Well Adolescent Visit [Z00.129] 02/02/2010 Onychia and paronychia of toe [L03.039] 05/27/2012 Herpes genitalis in men [A60.02] 08/15/2019 Letter Text Encounter Status:Closed by EDENILSON WASHBURN PA-C on obsolete on 2019-08 OBSOLETE Refill (INTMWS) Normal 08-15-2019 [facility] AROLDO Salcido ([id number]) 1995 [place] Date Time Provider Department ([id number]) 08/15/19 DEA MAE III During your visit today, we recorded the following informati on about you: Sarah James Pss 08/15/2019 9:11 AM Signed Aroldo Pina is calling Dea helm III MD today to request a refill on Valacyclovir. He asked that it be sent to the [facility] in [place]. Patient has been identified by name and birthdate. Duration of symptoms: N/A Person calling: self Call patient at: on cell [phone] (home) [phone] (cell) Was an appointment scheduled: No Sarah Richter, MSN GEAR ROOM KEEPER.FOLDER HAND 08/15/2019 9:42 AM Signed The following approved medic ation requests have been transmitted electronically. Signed Prescriptions Disp Refills valACYclovir (VALTREX) 1 gram tab 10 tablet 1 Sig: Take 1 tablet by mouth once daily for 5 days. Start at first onset of symptoms. LOLLY: No Authorizing Provider: NATALIE RICHTER, MSN GEAR ROOM KEEPER.FOLDER HAND Allergies As of Date: 08/15/2019 Noted Allergy Reaction BENADRYL (DIPHENHYDRAMINE HCL) 04/17/2011 14 - Other: See Co mments Comments: Feels like he's jumping out of his skin ZITHROMAX (AZITHROMYCIN) 07/29/2005 Date Reviewed: 09/14/2018 Reviewed by: Chandler Leigh LPN - Fully Assessed Reason for Visit: Refill Request [94] Cmt: Valacyclovir Reason For Visit History Recorded Visit Diagnoses:Herpes simplex infection of penis [A60.01] Herpes genitalis in men [A60.02] Order(s):valACYclovir (VALTREX) 1 gram tabTake 1 tablet by mouth once daily for 5 days. Start at first onset of symptoms.Disp: 10 tablet Rfl: 1 Prescriptions as of 08/15/2019 Sig: VALACYCLOVIR 1 GRAM TABLET Take 1 tablet by mouth once d* NAPROXEN 500 MG TABLET Take 1 tablet by mouth twice * Patient not taking: Reported on 09/12/2018 Problem List As Of Date 08/15/2019 Noted Resolved PAIN GROIN [R10.9] INVALID FOR* URINARY INCONTINENCE, UNSPECIFIED [R32] INVALID FOR* OBESITY NOS [E66.9] INVALID FOR* Well Adolescent Visit [Z00.129] INVALID FOR* Onychia and paronychia of toe [L03.039] INVALID FOR* Herpes genitalis in men [A60.02] INVALID FOR* Prescriptions ordered this encounter Disp Refills Start End VALACYCLOVIR 1 GRAM TABLET 10 t* 1 08/15/2019 08/20/2019 Route: ORAL Sig: Take 1 tablet by mouth once daily for 5 days. Start at first onset of symptoms. Medications Discontinued During This Encounter valACYclovir (VALTREX) 1 gram tab 5 ta* 3 09/14/2018 019 Class: Print RX Route: ORAL Sig: Take 1 tablet by mouth once daily for 5 days. Start at first onset of symptoms. Disc: Reason for discontinue is not on file. Encounter Status:Closed by NATALIE RICHTER CNP on 08/15/19 Vital Signs Vital Sign Description Value / Unit Date Location The following section is limited to 5 en tries per type and includes entries from the following time range: 20200617 - 20200602 6. Body Temperature 98.6 [degF] 06-17-2020 [facility] c ([id number]) Body weight 149.96 kg 06-17-2020 [facility] [place] ([id number]) BP Diastolic 88 mm[Hg] 06-17-2020 [facility] ([id number]) BP Systolic 142 mm[Hg] 06-17-2020 [facility] ([id number]) Pulse (Heart Rate) 80 /min 06-17-2020 [facility] radha ([id number]) Pulse Oximetry 97 % 06-17-2020 [facility] ([id number]) Respiratory Rate 16 /min 06-17-2020 [facility] ([id number]) Encounters Date Type Reason Provider Location 06-17-2020 - Patient encounter Nausea and Isaura R (Pa) [facility] 06-17-2020 procedure vomiting Care Comment: Non-intractable vomiting wit h nausea, unspecified vomiting type (Primary Dx) 05-16-2020 - Patient encounter Contact with and DIOGENES odom 05-16-2020 procedure (suspected) [facility] exposure to other [facility] viral communicable ARABELLA (75270) diseases [facility] Plan of Treatment Plan Description Date Location INFLUENZA (#1) INFLUENZA (#1) 2020 [facility] ([id number]) DTAP,TDAP,TD (7 - Td) DTAP,TDAP,TD (7 - Td) 03-16-2020 [facility] ([id number]) ONE PNEUMOVAX PRIOR TO ONE PNEUMOVAX PRIOR TO AGE 1210-30-2015 [facility] ([id number]) AGE 65 65 HIV SCREENING HIV SCREENING 2014 [facility] [place] (68066) HPV VACCINE (1 - Male HPV VACCINE (1 - Male 2007 [facility] (68883) 2-dose series) 2-dose series) Immunizations Vaccine Notes Status Date Location DTaP (Age<7) diphtheria, tetanus (completed) 12-22-2001 [facility] toxoids and acellular (02353 ) pertussis vaccine DTaP (Age<7) diphtheria, tetanus (completed) 10-29-1998 [facility] toxoids and acellular (99739 ) pertussis vaccine DTaP + HIB DTaP-Haemophilus (completed) 04-27-1997 [facility] linic influenzae type b (34137) conjugate vaccine DTaP + HIB DTaP-Haemophilus (completed) 03-11-1997 [facility] linic influenzae type b (08928) conjugate vaccine DTaP + HIB DTaP-Haemophilus (completed) 01-14-1997 [facility] linic influenzae type b (45735) conjugate vaccine Hib - 4 Dose Schedule haemophilus influenzae (completed) [facility] type b vaccine, HbOC (84541) conjugate Hepatitis B Peds/Adol hepatitis B vaccine, (completed) 08-14-1997 [facility] pediatric or (02539) pediatric/adolescent dosage Hepatitis B Peds/Adol hepatitis B vaccine, (completed) 01-14-1997 [facility] [place] pediatric or (77364) pediatric/adolescent dosage Hepatitis B Peds/Adol hepatitis B vaccine, (completed) 1996 [facility] pediatric or (61113) pediatric/adolescent dosage MMR measles, mumps and (completed) 12-22-2001 [facility] rubella virus vaccine (61336 ) MMR measles, mumps and (completed) 10-31-1997 [facility] [place] rubella virus vaccine (34056 ) Meningococcal Vaccine, meningococcal (completed) 02-02-2010 [facility] SQ polysaccharide vaccine (4419 5) (MPSV4) IPV poliovirus vaccine, (completed) 12-22-2001 [facility] inactivated (67694) IPV poliovirus vaccine, (completed) 10-29-1998 [facility] inactivated (23556) IPV poliovirus vaccine, (completed) 03-11-1997 [facility] inactivated (46689) IPV poliovirus vaccine, (completed) 01-14-1997 [facility] inactivated (65425) Tdap (Age 7+) tetanus toxoid, reduced (completed) 03-16-2010 [facility] diphtheria toxoid, and (4419 5) acellular pertussis vaccine, adsorbed Payers Payer Name Policy Number Location [facility] [id number] [facility] [place] (44 195) [facility] [id number] [facility] OUTPATIENT (96295) [id number] [facility] (20248) The following information is from the original human readable contentNo Payer Records FoundNo Payer Records FoundNo Payer Records Found Social History Type Social History Description Date Locat ion Tobacco smoking status Current every day smoker 06-17-2020 [facility] [place] ([id number]) NHIS History of tobacco use Cigarette Smoker [facility] (64652) Tobacco use and exposure Never used 06-17-2020 [facility] (04663) Alcohol intake Current non-drinker of 06-17-2020 [facility] (14766) alcohol (finding) Tobacco Comment smokes 1-2 per day 01-05-2013 [facility] (63311) Sex Assigned At Not on file [facility] (14390) Exposure to SARS-CoV-2 Not sure [facility] (95348) (event) The following information is from the original human readable contentNo Social History Records FoundNo Social History Records FoundNo Social History Records FoundNo Social History Records FoundNo Social History Records Found Summary Purpose Family History No Family History Records FoundNo Family History Records FoundNo Family History Records Found Advance Directives No Advanced Directives Records FoundNo Advanced Directives Records FoundNo Advanced Directives Records Found History of Present Illness Zulma Isaura Safia (Seema) - 06/17/2020 12:37 PM EDT This note was created using [email or web address]. Elbert Pina is a 24 year old male. HPI Pt presents vomiting after eating. He has problems with this off and on since spring. He hasbeen seen in the ER and by his primary doctor. He was diagnosed with fatty liver disease and he states his PCP contributed the vomiting to that. He did have an ultrasound of the right upper quadrant and march which showed a fatty liver. He states he's had some abdominal cramping off and on mainly beforehe goes to vomit. He started to vomit yesterday. He states he needs a work note as he doesn't feel he should go in today. No fever. No cough or congestion. No sore throat. No diarrhea. Yesterday he dideat a fried chicken from [employer] but his girlfriend ate the same thing and she did not get ill. Review of Systems Constitutional: Negative. HENT: Negative. Negative for congestion, ear pain and sore throat. Eyes: Negative. Respiratory: Negative for cough and shortness of breath. Cardiovascular: Negative. Negative for chest pain. Gastrointestinal: Positive for abdominal pain, nausea and vomiting. Negative for diarrhea. Endocrine: Negative. Genitourinary: Negative. Musculoskeletal: Negative. All other systems reviewed and are negative. PAST MEDICAL HISTORY Diagnosis Date ? Chronic mucoid otitis media ? Expressive language disorder ? Respiratory syncytial virus (RSV) Current Outpatient Medications Medication Sig Dispense Refill ? valACYclovir (VALTREX) 500 mg tablet Take 1 tablet by mouth every 12 hours for 3 days. 6 tablet 0 ? ondansetron orally disintegrating (ZOFRAN ODT) 4 mg disintegrating tablet Take 1 tablet by mouth every 8 hours as needed. 12 tablet 0 No current facility-administered medications for this visit. PAST SURGICAL HISTORY Procedure Laterality Date ? INCISION EARDRUM,ASPIR,GEN ANESTH Myringotomy/tubes ? REPAIR ING HERNIA,5+Y/O,REDUCIBL 1986 Hernia repair, inguinal, bilateral FAMILY HISTORY Problem Relation Age of Onset ? None Mother ? None Father ? Heart Maternal Grandmother ? Hypertension Maternal Grandmother ? Hypertension Paternal Grandfather ? Diabetes Paternal Grandfather Social History Tobacco Use ? Smoking status: Current Every Day Smoker Types: Cigarettes ? Smokeless tobacco: Never Used ? Tobacco comment: smokes 1-2 per day Substance Use Topics ? Alcohol use: No ? Drug use: No Objective BP 142/88 Pulse 80 Temp 37 ?C (98.6 ?F) (Left Tympanic) Resp 16 Wt (!) 150 kg (330 lb 9.6 oz) SpO2 97% Physical Exam Vitals signs reviewed. Constitutional: Appearance: Normal appearance. HENT: Head: Normocephalic and atraumatic. Mouth/Throat: Mouth: Mucous membranes are moist. Pharynx: Oropharynx is clear. Cardiovascular: Rate and Rhythm: Normal rate and regular rhythm. Pulmonary: Breath sounds: Normal breath sounds. Abdominal: General: Abdomen is flat. Bowel sounds are normal. There is no distension. Palpations: Abdomen is soft. There is no mass. Tenderness: There is no abdominal tenderness. There is no guarding or rebound. Skin: General: Skin is warm and dry. Coloration: Skin is not jaundiced or pale. Findings: No rash. Neurological: General: No focal deficit present. Mental Status: He is alert and oriented to person, place, and time. Psychiatric: Mood and Affect: Mood normal. Behavior: Behavior normal. Assessment and Plan ASSESSMENT/PLAN: 1. Non-intractable vomiting with nausea, unspecified vomiting type - ICD9: 787.01, ICD10: R11.2 Patient appears well here. Vital signs are stable. Abdominal exam unremarkable. I will give him someZofran. Discussed with him if he can't keep any fluids down over the next day, developed severe abdominal pain or fever I would recommend being seen in the ED. This is a chronic issue for him. I did encourage him to follow up with his PCP. He is agreeable with plan. Isaura Weinberg PA-C documented in this encounter Assessments Diagnosis Non-intractable vomiting with nausea, un specified vomiting type - Primary Additional Source Comments FOR RECORDS PERTAINING TO PATIENTS WHO ARE OR HAVE BEEN ENROLLED IN A CHEMICAL DEPENDENCY/SUBSTANCE ABUSE PROGRAM, SOME INFORMATION MAY BE OMITTED. This clinical summary was aggregated from multiple sources. Caution should be exercised in using it in the provision of clinical care. This summary normalizes information from multiple sources, and as a consequence, information in this document may materially changethe coding, format and clinical context of patient data. In addition, data may be omittedin some cases. CLINICAL DECISIONS SHOULD BE BASED ON THE PRIMARY CLINICAL RECORDS. [facility] provides no warranty or guarantee of the accuracy or completeness of information in this document. UNRECOGNIZED CONTENT PROVIDED BELOW FOR UNRECOGNIZED SECTION No Status Records FoundNo Status Records FoundNo Status Records Found UNRECOGNIZED CONTENT PROVIDED BELOW FOR UNRECOGNIZED SECTION INFORMATION SOURCE DATE CREATED AUTHOR AUTHOR'S ORGANIZATIO N 05/25/2020 [facility] DATE CREATED AUTHOR AUTHOR[facility]S [facility]IZATIO [facility] DATE CREATED AUTHOR AUTHOR'S ORGANIZATIO N 06/17/2020 [facility] UNRECOGNIZED CONTENT PROVIDED BELOW FOR UNRECOGNIZED SECTION Source Comments In the event this information is protected by the Federal Confidentiality of Alcohol and Drug Abuse Patient Records regulations: The Federal rules restrict any use of the information to criminally investigate or prosecute any alcohol or drug abuse patient.[facility] UNRECOGNIZED CONTENT PROVIDED BELOW FOR UNRECOGNIZED SECTION Reason for Visit Reason Comments Vomiting
--- OUTSIDE RECORDS SUMMARY | 2020-08-14 10:33 | XMS RPT_ITS | CCD ---
:1995 External Reference #:[id number] Organization [facility] Care Team Providers Name Role Phone ARABELLA, E Admitting Unavailable ARABELLA, E Attending Unavailable ARABELLA, E Primary Care Unavailable Ihsan Mae Primary Care Provider Allergies Reported Allergen Reaction(s) Severity Date of Onset Location Azithromycin 07-29-2005 - [facility] (35411) diphenhydrAMINE Other: See Comments 04-17-2011 - [facility] (62160) Medications Medication Name Sig Date Prescriber Location Ondansetron ondansetron orally 06-17-2020 [facility] disintegrating (ZOFRAN Isaura R (Pa) [place] ( 00191) ODT) 4 mg disintegrating tablet Take 1 tablet by mouth every 8 hours as needed. 12 tablet 0 06/17/2020 Active Comment: Take 1 tablet by mouth every 8 hours as needed. valACYclovir valACYclovir (VALTREX) 04-20-2020 Angi N (Blender Machine Operator C [facility] 500 mg tablet Take 1 Half Section Ironer) [place] (15970) tablet by mouth every Angi N (Blender Machine Operator 12 hours for 3 days. 6 Half Section Ironer) [place] tablet 0 04/20/2020 Active Comment: Take 1 tablet by mouth every 12 hours for 3 days. Problems Active Problems Category Problem Name Status Date Location Genitourinary symptoms Urinary incontinence Active 02-07-2009 - [facility] and ill-defined (54612) conditions Immunizations and Contact with and Active 05-16-2020 - [facility] screening for infectious (suspected) exposure [facility] disease to other viral (45085) communicable diseases Nausea and vomiting Nausea and vomiting Active C [facility] (70908) Other liver diseases Non-alcoholic fatty Active 03-16-2020 - [facility] liver (76656) Other nutritional; Obesity Active 02-07-2009 - [facility] endocrine; and metabolic (44 195) disorders Unclassified Patient encounter Active 02-02-2010 - [facility] status (52829) Viral infection Genital herpes simplex Active 08-15-2019 - [facility] (56785) Past or Other Problems Category Problem Name Status Date Location Abdominal pain Abdominal pain Completed 11-06-2008 - [facility] (50633) Other screening for Liver function tests Completed 03-16-2020 - [facility] suspected conditions abnormal (89347) (not mental disorders or infectious disease) Other skin disorders Disorder of nail Completed 05-27-2012 - [facility] (20051) Results Result Name Value Range Unit Interpretation Flag Date Location progress on 2020-06 PROGRESS HNO ID: [id number] Normal 06-17-2020 [facility] Author: Isaura Stearns) Zulma Trevizo ([id number]) Service: ? Author Type: Physician Surgical Supply Assistant Type: Progress Notes Filed: 06/17/2020 12:41 PM Note Text: This note was created using Domee. Elbert Pina is a 24 year old [...] CNOV Office Visit (UCWSTR) Normal 06-17-20 20 [facility] AROLDO Salcido ([id number]) 1995 M [facility] Date Time Provider Department (74091) 06/17/20 12:00 PM ISAURA WEINBERG (SEEMA) WSTR During your visit today, we recorded the following informati on about you: Temperature Pulse Respiration Blood pressure 98.6 degrees 80/minute 16/minute 142/88 Weight 150 kg Isaura Weinberg PA-C 06/17/2020 12:41 PM Signed This note was created using Domee. Subjective Aroldo Pina is a 24 year [...] he did eat a fried chicken from [employer] but his girlfriend ate the same thing [...] 06/17/20 progress on 2020-05 PROGRESS HNO ID: [id number] Normal 05-31-2020 [facility] Author: Mitesh (Half Section Ironer) [facility] ([id number]) Service: ? Author Type: Nurse Practitioner Type: Progress Notes Filed: 05/31/2020 12:15 PM Note Text: Subjective HPI HPI Aroldo Pina is a 24 [facility]. [...] 2020-05-31 CNOV Office Visit (UCWSTR) Normal 05-31-[address] [place] [address] [facility] AROLDO PNIA ([id number]) 1995 [facility] Date Time Provider Department (50289) 05/31/20 8:15 AM MITESH GONZALEZ (SEAN) WSTR [...] MG CAPSULE Agrees to plan Mitesh Gonzalez APRN.ELECTROMECHANICAL ASSEMBLER Referring Provider: SELF [200] Allergies As of [...] 2020-05-18 REF LAB REPORT NEGATIVE Normal 05-18-2020 [facility] (26105) Comment: Performed By: #### [id number] ## ## [facility],[address] [place] [address]30 coronavirus pcr [ccl] on 2020-05-17 COVID 19 Result CUSTOMER BUSINESS MANAGER Negative CORNEG Normal 05-17-2020 [facility] ( 43390) Comment: Result Comment: Negative for COVID19 (SARS CoV2) by PCR. This test was developed and its performance characteristics determined by [facility]'s [facility] [place]. This test has bee n authorized by FDA under an Emergency Use Authorization (EUA). This test has been validated in accordance with the FDA's Guidance Document Policy for Diagnostics Test ing in Laboratories Certified to Perform High Complexity Testing under CLI A prior to Emergency use Authorization for Coronavirus Disease 2019 dur ing the Public Health Emergency issued on December 31, 2019. [facility] [address] [place] [address] Hansel Soliz III, M.D. [id number] Performed By: #### [id number] ## ## [facility],[address] [place] [address] 84443 COVID 19 Source CUSTOMER BUSINESS MANAGER Nasopharyngeal Swab Normal 0 05-17-2020 [facility] ( 89410) Comment: Performed By: #### [id number] ## ## [facility],[address] [place] [address] 61681 coronavirus 2019 on 2020-05-17 COVID 19 Result CUSTOMER BUSINESS MANAGER Negative for COVID19 Normal 05-17-2020 [facility] (SARS CoV2) by PCR. Reference Lab (16685) Comment: Result Comment: Negative for This test was developed and its performance characteristics determined by [facility]'s [facility] [place]. This test has been authorized by FDA [...] developed and its performance characteristics determined by [facility]'s [facility] [place]. This test has been authorized by FDA [...] developed and its performance characteristics determined by [facility] [place]. This test has been authorized by [facility] under an Emergency Use Authorization (EUA). This test has been validated in accordance with the FDA's Guidance Document Policy for Diagnostics Testing in Laboratories Certified to Perform High Complexity Testing under CLIA prior to Emergency use Authorization for Coronavir us Disease 2019 during the Public Health Emergency issued on December 31, 2019. COVID 19 Source CUSTOMER BUSINESS MANAGER CUSTOMER BUSINESS MANAGER Normal 05-17-2020 [facility] Lab (43001) cnpn on 2020-05-02 CNPN Telephone (FAMPWS) Normal 05-02-2020 [facility] AROLDO Salcido ([id number]) 1995 [facility] Date Time Provider Department (80248) 05/02/20 DEA MAE III During your visit today, we recorded the following informati on about you: Emilie Haynes LPN, STEPAN 05/02/2020 1:53 PM Signed ----- Message from Dea Mae III sent at 04/28/2020 11:46 AM EDT ----- Liver function tests remain elevated without significant imp rovement. ?Hepatitis labs were negative on 03/09 but maybe they were obtained too early to picker operator the presence of hepa titis virus. I [...] 07/29/2005 Date Reviewed: 04/19/2020 Reviewed by: Bo ([facility]) Rolando - Fully Assessed Reason for Visit: [...] 05/02/20 progress on 2020-04 PROGRESS HNO ID: [id number] Normal 04-26-2020 [facility] Author: Tara Melton) Elias [facility] ([id number]) Service: ? Author Type: Nurse Practitioner Type: [...] 2020-04-26 CNOV Office Visit (UCWSTR) Normal 04-26-[address] [place] [address] [facility] PINAAROLDO ([id number]) [address] [facility] Time Provider Department (18881) 04/26/20 10:15 AM TARA ROOT) [facility] During your visit today, we recorded [...] 07/29/2005 Date Reviewed: 04/19/2020 Reviewed by: Bo ([facility]) Rolando - Fully Assessed Primary Visit Diagnosis:Dizziness [...] ROOT CNP on 04/26/20 [facility] Normal 04-20-2020 [facility] AROLDO PINA W ([id number]) 1995 [facility] Date Time Provider Department (71367) 04/20/20 ANGI BAE (PIPED POCKET MACHINE OPERATOR, ELECTROMECHANICAL ASSEMBLER)[facility] During your visit today, we recorded [...] Sp. Request/Comment: - Swab Cr itically 04-19-2020 [facility] Result - No organisms seen No Polymorphonuclear Leukoc ytes abnormal Clinic Culture Result - Rare Coagul ase negative Staphylococcus species --> ABNORMAL ALERT No further workup --> ABNORMAL ALERT For wound culture, tissue or aspirates are superior to swab specimens. If a [facility] swab must be used, eSwab is preferred (Hernandez no. [id number]). (09125) Comment: Performed By: #### WCUL #### [facility] [address] [place], [place] [id number]- [phone] progress on 2020-04 PROGRESS HNO ID: [id number] Normal 04-19-2020 [facility] Author: Bo (Half Section Ironer) Rolando Trevizo ([id number]) Service: ? Author Type: Nurse Practitioner Type: [...] of care. This note was generated using [employer] software. It may contain errors in wording, punctuation, or spelling. Bo Marshall APRN.ELECTROMECHANICAL ASSEMBLER hsv1,2/vzv amplif o n 2020-04-19 HSV Type 1, HDA Negative for Herpes Normal 04-02 [facility] Simplex virus Type 1 by [facility] (95266) Molecular Detection. Comment: Performed By: #### HSVVZV ## ## [facility] [address] [place] [address] HSV Type 2, Positive for Herpes Critically abnorma l 04-19-2020 [facility] HDA Simplex virus Type C leveland (40704) 2 by Molecular Detection. Comment: Performed By: #### HSVVZV ## ## [place] [address] [place] [address] Specimen source Nom (Unsp Lesion Normal 04-02 [facility] spec) (64316) Comment: Performed By: #### HSVVZV ## ## [place] [address] V Zoster Virus, HDA Negative for Varicella Normal 04-19-2020 [facility] Zoster virus by Veena ahuja (46370) Molecular Detection. Comment: Performed By: #### HSVVZV ## ## [place] [address] hepatic functn panel on 2020-04-19 Albumin [Mass/Vol] 4.7 3.9-4.9 g/dL Normal 04-19-2020 [facility] (55939) Comment: Performed By: #### HFP #### [place] [address] ALP [Catalytic activity/Vol] 47 38-113 U/L Normal 0 04-19-2020 [facility] (01063) Comment: Performed By: #### HFP #### [place] [address] ALT [Catalytic activity/Vol] 102 10-54 U/L High 0 04-19-2020 [facility] (56056) Comment: Performed By: #### HFP #### [place] [id number] AST [Catalytic activity/Vol] 69 14-40 U/L High 0 04-19-2020 [facility] (39662) Comment: Performed By: #### HFP #### [place] [address] Bilirubin [Mass/Vol] 0.6 0.2-1.3 mg/dL Normal 0 [facility] (97398) Comment: Performed By: #### HFP #### [facility] [address] [place], [place] [address] Bilirubin,Conjugated <0.2 <0.2 Normal 0 [facility] (64952) Comment: Performed By: #### HFP #### [facility] [address] [place], [place] [address] Protein [Mass/Vol] 7.3 6.3-8.0 g/dL Normal 04-19-2020 [facility] (34728) Comment: Performed By: #### HFP #### [facility] [address] [place], [place] [address] cnov on 2020-04-19 CNOV Office Visit (UCWSTR) Normal 04-19-20 [facility] AROLDO PINA ([id number]) 1995 [facility] Date Time Provider Department (57776) 04/19/20 7:45 AM BO MARSHALL (ELECTROMECHANICAL ASSEMBLER) WSTR During your visit today, we recorded [...] of care. This note was generated using X-1. It may contain errors in wording, punctuation, [...] CULTURE AND GRAM STAIN [SQWCUL] Order #: [id number] HSV 1,2/VZV AMP MOLECULAR DETECT [SQHSVVZV] Order #: [id number] FUTURE Prescriptions as of 04/19/2020 Sig: [...] progress on 2020-05 -15 PROGRESS HNO ID: [id number] Normal 03-16-2020 [facility] Author: Dea Mae III [facility] (54896) Service: ? Author Type: Physician Type: Progress [...] gastritis. Prescribed prilosec but he did not picker operator the med. Today able to work full [...] at 1551 17 min cnpn on 2020-03-16 [facility]) Normal 03-16-2020 [facility] PINAAROLDO ([id number]) 1995 [facility] Date Time Provider Department (35713) 03/16/20 DEA MAE III During your visit today, we recorded the following informati on about you: Pat Sanchez Pss 03/16/2020 9:15 AM Signed Patient was seen at the [facility] Er 03/15/2020. Seema hunter declines to download Base CRM chris. Patient is request ing a phone call after work at 2:30 PM Alfredo Porter Ma 03/16/2020 9:26 AM Signed ER records given to provider. Alfredo Mae III MD 03/16/2020 10:07 AM Signed please make this a phone appt DOMINIQUE Loew MD, Ma 03/16/2020 1:30 PM Signed PATIENT [...] Status:Closed by ALFREDO PORTER MA on 03/16/20 [facility]) Normal 03-16-2020 [facility] AROLDO PINA ([id number]) [address] [facility] Time Provider Department (97001) 03/16/20 DIOGENES GAYTAN [facility] During your visit today, we recorded the [...] * * *Final Report* * * Normal [facility] - DATE OF EXAM: Mar 15 2020 3:36PM [facility] ([id number]) WRU 1232 - US ABD SPLEEN -NB [...] such as CT scan can be performed. Photogravure Press Operator: SHELLI Transcribe Date/Time: Mar 15 2020 3:37P Dictated by : DONAVON POZO MD This examination was interpreted and the report reviewed and electronically signed by: DONAVON POZO MD on Mar 15 2020 3:51PM EST [id number] us abd right upper quadrant on 2020-03-15 US ABD RIGHT * * *Final Report* * * Normal 03-02 [facility] UPPER QUADRANT DATE OF EXAM: Mar 15 2020 3:36PM [facility] ([id number]) WRU 1032 - US ABD RIGHT UPPER [...] such as CT scan can be performed. Photogravure Press Operator: [facility] Transcribe Date/Time: Mar 15 2020 3:37P Dictated by : DONAVON POZO MD This examination was interpreted and the report reviewed and electronically signed by: DONAVON POZO MD on Mar 15 2020 3:51PM EST [id number] progress on 2020-03 PROGRESS HNO ID: [id number] Normal 03-15-2020 [facility] Author: Tara Burch) Edith Trevizo ([id number]) Service: ? Author Type: Hand Alterations Tailor Type: Progress Notes Filed: 03/15/2020 3:37 PM [...] 15, 2020 3:37 PM PROGRESS HNO ID: [id number] Normal 03-15-2020 [facility] Author: Kiko Russ [facility] ([id number]) Service: ? Author Type: Physician Type: Progress [...] transport himself now. Report se nt to [facility] electronically by ER Passport. Kiko Russ MD cnov on 2020-03-15 CNOV Office Visit (UCWSTR) Normal 03-15-[address] [place] [address] [facility] AROLDO PINA W ([id number]) 1995 [facility] Date Time Provider Department (86784) 03/15/20 10:30 AM KIKO RUSS [facility] During your visit today, we recorded [...] transport himself now. Report sent t o [facility] electronically by ER Passport. Kiko Russ MD [...] Status:Closed by KIKO RUSS MD on 03/15/20 [facility] on 2020-03-12 [facility] Telephone (FAMPWS) Normal 03-12-2020 [facility] ([id number]) 1995 [facility] Date Time Provider Department (22221) 03/12/20 DIOGENES GAYTAN During your visit today, [...] he will call b arin Richter, MSN PIPED POCKET MACHINE OPERATOR.ELECTROMECHANICAL ASSEMBLER 03/12/2020 10:47 AM Signed Please contact patient [...] an alternative suppressive medication in the future. Natalie Richter, MSN PIPED POCKET MACHINE OPERATOR.SEAN Leigh LPN 03/12/2020 11:45 AM Signed Pt advised of Natalie's message, verbalizes unders tanding. Pt states that he is at work and is going to call back to [facility]. Chandler Leigh LPN Allergies As of Date: 03/12/2020 Noted Allergy Reaction BENADRYL (DIPHENHYDRAMINE HCL) 04/17/2011 14 - Other: See Co mments Comments: Feels like he's jumping out of his skin ZITHROMAX (AZITHROMYCIN) 07/29/2005 Date Reviewed: 09/28/2019 Reviewed by: Rosemary Kumar Ma - Fully Assessed Reason for Visit: Results [95] Primary Visit Diagnosis:Elevated liver enzymes [R74.8] Order(s):US ABD RT UPPER QUADRANT [1088805] Order #: [id number] FUTURE HEPATIC FUNCTION PNL [SQHFP] Order #: [id number] FUTURE Prescriptions as of 03/12/2020 Sig: VALACYCLOVIR [...] on 2020-03-09 HBsAg Negative Negative Normal 03-09-2020 [facility] (61498) Comment: Performed By: #### Neto GALEANA ####[place] [address] [address] [place], [place] [phone]- [phone] Hep B Core Ab, IgM Negative Negative Normal 03-09-2020 [facility] (18964) Comment: Performed By: #### Neto GALEANA ####[place] [address] [address], [place] [phone]- [phone] Hepatitis A Ab IgM Negative Negative Normal 03-09-2020 [facility] (17545) Comment: Performed By: #### Neto GALEANA FP ####[place] [address] [address], [place] [id number]- [phone] Hepatitis C RNA HCV RNA not detected by Normal 03-09-2020 [facility] [place] (62976) Comment: Result Comment: Reference Ra nge: Negative for HCV RNA The Linear Range of this ass ay is 15 IU/mL to 100,000,000 IU/mL. Performed By: #### Neto GALEANA ####[place] [address] [address], [place] [phone]- [phone] hepatic functn panel on 2020-03-09 Albumin [Mass/Vol] 4.6 3.9-4.9 g/dL Normal 03-09-2020 [facility] (43068) Comment: Performed By: #### Neto GALEANA FP ####[facility], [place] [phone]- [phone] ALP [Catalytic activity/Vol] 72 38-113 U/L Normal 0 03-09-2020 [facility] (48135) Comment: Performed By: #### Neto GALEANA FP ####[place] [address] [address], [place] [phone]- [phone] ALT [Catalytic activity/Vol] 96 10-54 U/L High 0 03-09-2020 [facility] (16403) Comment: Performed By: #### Neto GALEANA FP ####[facility] [address], [place] [phone]- [phone] AST [Catalytic activity/Vol] 49 14-40 U/L High 0 03-09-2020 [facility] (90530) Comment: Performed By: #### Neto GALEANA FP ####[place] [address], [place] [phone]- [phone] Bilirubin [Mass/Vol] 0.3 0.2-1.3 mg/dL Normal 0 [facility] (16130) Comment: Performed By: #### Neto GALEANA FP ####[place] [address], [place] [phone]- [phone] Bilirubin,Conjugated <0.2 <0.2 Normal 0 [facility] (24077) Comment: Performed By: #### Neto GALEANA FP ####[place] [address], [place] [phone]- [phone] Protein [Mass/Vol] 6.8 6.3-8.0 g/dL Normal 03-09-2020 [facility] (15004) Comment: Performed By: ###Neto STEEN FP ####[place] [address] [address], [place] [phone]- [phone] cnpn on 2020-03-02 LUIS Telephone (GERARDO) Normal 03-02-2020 [facility] AROLDO Salcido ([id number]) 1995 [facility] Date Time Provider Department (08006) 03/02/20 CHRISTINE, DIOGENES J FAMPWS During your [...] [R74.8] Order(s):HEPATIC FUNCTION PNL [SQHFP] Order #: [id number] FU TURE HEP ACUTE PANEL/RNA [SQHACRNA] Order #: [id number] FUTURE Prescriptions as of 03/02/2020 Sig: VALACYCLOVIR [...] Albumin [Mass/Vol] 4.8 3.9-4.9 g/dL Normal 03-01-2020 [facility] (59124) Comment: Performed By: #### CMP ####C [address] [phone]- [phone] ALP [Catalytic activity/Vol] 58 38-113 U/L Normal 0 03-01-2020 [facility] (97522) Comment: Performed By: #### CMP ####C [address] [phone]- [phone] ALT [Catalytic activity/Vol] 110 10-54 U/L High 0 03-01-2020 [facility] (96038) Comment: Performed By: #### CMP ####C [address] [phone]- [phone] Anion gap [Moles/Vol] 17 9-18 mmol/L Normal 03-01-20 [facility] (48829) Comment: Performed By: #### CMP ####C [address] [phone]- [phone] AST [Catalytic activity/Vol] 62 14-40 U/L High 0 03-01-2020 [facility] (46093) Comment: Performed By: #### CMP ####C [address] [phone]- [phone] Bilirubin [Mass/Vol] 0.3 0.2-1.3 mg/dL Normal 0 [facility] (35769) Comment: Performed By: #### CMP ####C [address] [phone]- [phone] Calcium [Mass/Vol] 9.9 8.5-10.2 mg/dL Normal 03-01-2020 [facility] (72727) Comment: Performed By: #### CMP ####C [address] [phone] Chloride [Moles/Vol] 101 97-105 mmol/L Normal 0 [facility] (41702) Comment: Performed By: #### CMP ####C [facility] [place], [place] [phone]- [phone] CO2 [Moles/Vol] 23 22-30 mmol/L Normal 03-01-2020 [facility] (20237) Comment: Performed By: #### CMP ####C [facility] [place] [address] [phone]- [phone] Creatinine [Mass/Vol] 0.82 0.73-1.22 mg/dL Normal 03-01-20 20 [facility] (86136) Comment: Performed By: #### CMP ####C [address] [phone]- [phone] eGFR- Amer. >60 Normal 03-01-2020 [facility] (72169) Comment: Performed By: #### CMP ####C [place] [phone]- [phone] GFR/1.73 sq M predicted >60 mL/min/{1.73_m2} Normal 03-01-2020 [facility] among non-blacks [facility] (03963) (S/P/Bld) [Vol rate/Area] Comment: Result Comment: eGFR [...] actual GFR. Performed By: #### CMP ####C [place] [id number] [place], [place] [phone]- [phone] Glucose [Mass/Vol] 87 74-99 mg/dL Normal 03-01-2020 [facility] (44531) Comment: Result Comment: The [place] Diabetes Association (ADA) provides guidance for cutoff [...] for diagnosis of diabetes. Reference: Standards of [facility] Care in Diabetes 2016, [place] [employer] Association. Diabetes Care. 2016.39(Suppl 1). Performed By: #### CMP ####C [address] [phone] Potassium [Moles/Vol] 3.9 3.7-5.1 mmol/L Normal 03-01-20 [facility] (02743) Comment: Performed By: #### CMP ####C [address] [phone]- [phone] Protein [Mass/Vol] 7.2 6.3-8.0 g/dL Normal 03-01-2020 [facility] (39403) Comment: Performed By: #### CMP ####C [address] [id number] [phone] Sodium [Moles/Vol] 141 136-144 mmol/L Normal 03-01-2020 [facility] (66535) Comment: Performed By: #### CMP ####C [address] [phone] Urea nitrogen [Mass/Vol] 7 9-24 mg/dL Low 03-01 [facility] (03959) Comment: Performed By: #### CMP ####C [address] [phone]- [phone] progress on 2020-01 PROGRESS HNO ID: [id number] Normal 01-31-2020 [facility] Author: Natalie Unique Richter [facility] ([id number]) Service: ? Author Type: Nurse Practitioner Type: [...] as visit was completed over the phone /[employer]. Virtual visit completed using video, limited exam [...] 2.25)* * Growth percentiles are based on [facility] (Boys, 2-20 Years) ashwini a. Last 5 [...] - COMP METABOLIC PANEL Natalie Richter, MSN PIPED POCKET MACHINE OPERATOR.ELECTROMECHANICAL ASSEMBLER Total appointment time on phone with patient = 5-10 minutes cnpn on 2020-01-31 CNPN Telephone (FAMPWS) Normal 01-31-2020 [facility] AROLDO PINA ([id number]) 1995 [facility] Date Time Provider Department ([id number]) 01/31/20 DEA MAE III During your visit [...] 01/31/20 progress on 2019-09 PROGRESS HNO ID: [id number] Normal 09-28-2019 [facility] Author: Edenilson Snow) Abigail Trevizo ([id number]) Service: ? Author Type: Physician Surgical Supply Assistant Type: Progress Notes Filed: 09/28/2019 4:14 PM [...] CNOV Office Visit (WSTR) Normal 09-28-20 [facility] AROLDO PINA ([id number]) 1995 [place] Date Time Provider Department ([id number]) 09/28/19 12:45 PM EDENILSON WASHBURN) UCWSTR During [...] (INTMWS) Normal 08-15-2019 [facility] AROLDO Salcido ([id number]) 1995 [place] Date Time Provider Department ([id number]) 08/15/19 DEA MAE III During your visit today, we recorded the following informati on about you: Sarah James Pss 08/15/2019 9:11 AM Signed Aroldo Pina is calling Dea helm III MD today to request a refill on Valacyclovir. He asked that it be sent to the [facility] in [place]. Patient has been identified by name and birthdate. Duration of symptoms: N/A Person calling: self Call patient at: on cell [phone] (home) [phone] (cell) Was an appointment scheduled: No Sarah Richter, MSN PIPED POCKET MACHINE OPERATOR.ELECTROMECHANICAL ASSEMBLER 08/15/2019 9:42 AM Signed The following approved medic ation requests have been transmitted electronically. Signed Prescriptions Disp Refills valACYclovir (VALTREX) 1 gram tab 10 tablet 1 Sig: Take 1 tablet by mouth once daily for 5 days. Start at first onset of symptoms. LOLLY: No Authorizing Provider: NATALIE RICHTER, MSN PIPED POCKET MACHINE OPERATOR.ELECTROMECHANICAL ASSEMBLER Allergies As of Date: 08/15/2019 Noted Allergy [...] [id number] 6. Body Temperature 98.6 [degF] 06-17-2020 [facility] c ([id number]) Body weight 149.96 kg 06-17-2020 [facility] ([id number]) BP Diastolic 88 mm[Hg] 06-17-2020 [facility] ([id number]) BP Systolic 142 mm[Hg] 06-17-2020 [facility] ([id number]) Pulse (Heart Rate) 80 /min 06-17-2020 [facility] radha ([id number]) Pulse Oximetry 97 % 06-17-2020 [facility] ([id number]) Respiratory Rate 16 /min 06-17-2020 [facility] c ([id number]) Encounters Date Type Reason Provider Location 06-17-2020 - Patient encounter Nausea and Isaura R (Pa) [facility] Urgent 06-17-2020 procedure vomiting Care Comment: Non-intractable vomiting wit h nausea, unspecified vomiting type (Primary Dx) 05-16-2020 - Patient encounter Contact with and DIOGENES odom 05-16-2020 procedure (suspected) [facility] exposure to other [facility] viral communicable ARABELLA ([id number]) diseases [facility] ([facility] Plan of Treatment Plan Description Date Location INFLUENZA (#1) INFLUENZA (#1) 2020 [facility] ([id number]) DTAP,TDAP,TD (7 - Td) DTAP,TDAP,TD (7 - Td) 03-16-2020 [facility] ([id number]) ONE PNEUMOVAX PRIOR TO ONE PNEUMOVAX PRIOR TO AGE 1210-30-2015 [facility] ([id number]) AGE [age] HIV SCREENING HIV SCREENING 2014 [facility] ([id number]) HPV VACCINE (1 - Male HPV VACCINE (1 - Male 2007 [facility] ([id number]) 2-dose series) 2-dose series) Immunizations Vaccine Notes Status Date Location DTaP (Age<7) diphtheria, tetanus (completed) 12-22-2001 [facility] toxoids and acellular (35490 ) pertussis vaccine DTaP (Age<7) diphtheria, tetanus (completed) 10-29-1998 [facility] toxoids and acellular (43882 ) pertussis vaccine DTaP + HIB DTaP-Haemophilus (completed) 04-27-1997 [facility] linic influenzae type b (92392) conjugate vaccine DTaP + HIB DTaP-Haemophilus (completed) 03-11-1997 [facility] linic influenzae type b (69276) conjugate vaccine DTaP + HIB DTaP-Haemophilus (completed) 01-14-1997 [facility] linic influenzae type b (42641) conjugate vaccine Hib - 4 Dose Schedule haemophilus influenzae (completed) [facility] type b vaccine, HbOC (42276) conjugate Hepatitis B Peds/Adol hepatitis B vaccine, (completed) 08-14-1997 [facility] pediatric or (27240) pediatric/adolescent dosage Hepatitis B Peds/Adol hepatitis B vaccine, (completed) 01-14-1997 [facility] pediatric or (40287) pediatric/adolescent dosage Hepatitis B Peds/Adol hepatitis B vaccine, (completed) 1996 [facility] pediatric or (20760) pediatric/adolescent dosage MMR measles, mumps and (completed) 12-22-2001 [facility] rubella virus vaccine (79192 ) MMR measles, mumps and (completed) 10-31-1997 [facility] rubella virus vaccine (94983 ) Meningococcal Vaccine, meningococcal (completed) 02-02-2010 [facility] SQ polysaccharide vaccine (4419 5) (MPSV4) IPV poliovirus vaccine, (completed) 12-22-2001 [facility] inactivated (92308) IPV poliovirus vaccine, (completed) 10-29-1998 [facility] inactivated (95033) IPV poliovirus vaccine, (completed) 03-11-1997 [facility] inactivated (57472) IPV poliovirus vaccine, (completed) 01-14-1997 [facility] inactivated (36486) Tdap (Age 7+) tetanus toxoid, reduced (completed) 03-16-2010 [facility] diphtheria toxoid, and (4419 5) acellular pertussis vaccine, adsorbed Payers Payer Name Policy Number Location [facility] [id number] [facility] (44 195) [facility] [id number] [facility] OUTPATIENT ([id number]) [id number] [facility] ([id number]) The following information is from the original human readable contentNo Payer Records FoundNo Payer Records FoundNo Payer Records Found Social History Type Social History Description Date Locat ion Tobacco smoking status Current every day smoker 06-17-2020 [facility] ([id number]) NHIS History of tobacco use Cigarette Smoker [facility] ([id number]) Tobacco use and exposure Never used 06-17-2020 [facility] ([id number]) Alcohol intake Current non-drinker of 06-17-2020 [facility] (14559) alcohol (finding) Tobacco Comment smokes 1-2 per day 01-05-2013 [facility] ([id number]) Sex Assigned At Not on file [facility] ([id number]) Exposure to SARS-CoV-2 Not sure [facility] ([id number]) (event) The following information is from the [...] PM EDT This note was created using Domee. Elbert Pina is a 24 year old [...] Yesterday he dideat a fried chicken from [employer] but his girlfriend ate the same thing [...] BE BASED ON THE PRIMARY CLINICAL RECORDS. [facility] provides no warranty or guarantee of the accuracy or completeness of information in this document. UNRECOGNIZED CONTENT PROVIDED BELOW FOR UNRECOGNIZED SECTION No Status Records FoundNo Status Records FoundNo Status Records Found UNRECOGNIZED CONTENT PROVIDED BELOW FOR UNRECOGNIZED SECTION INFORMATION SOURCE DATE CREATED AUTHOR AUTHOR'S ORGANIZATIO N 05/25/2020 [facility] DATE CREATED AUTHOR AUTHOR'S [facility]IZATIO N [facility] DATE CREATED AUTHOR AUTHOR'S ORGANIZATIO N 06/17/2020 [facility] UNRECOGNIZED CONTENT PROVIDED BELOW FOR UNRECOGNIZED SECTION Source Comments In the event this information is protected by the Federal Confidentiality of Alcohol and Drug Abuse Patient Records regulations: The Federal rules restrict any use of the information to criminally investigate or prosecute any alcohol or drug abuse patient.[facility] UNRECOGNIZED CONTENT PROVIDED BELOW FOR UNRECOGNIZED SECTION Reason for Visit Reason Comments Vomiting
== END 2020-03-15 12:52 | disposition home or self-care (01) ==
PROVIDERS: Emergency Provider Emergency Medicine; PCP Family Medicine
DX: K29.70 Gastritis, unspecified, without bleeding (principal); Z72.0 Tobacco use
CPT/HCPCS: 80048; 80076; 83690; 85025; 99284; A4216

== ENCOUNTER 2020-06-01 05:35 | Emergency (ER) | payer BC, SELFPAY ==
[2020-04-06 15:09] VITALS: BMI 41.9
[2020-06-01 05:35] VITALS: BP 144/85; PULSE 89; RESP 16; TEMP 36.4; O2SAT 97; BMI 41.1
--- NOTE | 2020-06-01 06:33 | ED.DCSUM_ITS ---
- ER Visit Summary Date of Service: 06/01/20 Chief Complaint: [Sore throat] History of Present Illness: The patient is a 24 M [presents the ER with sore throat x3 days. Patient states that he had some exudates on his tonsils yesterday and went to urgent care and was started on cephalexin although he was not tested for strep. Patient denied cough or fever. No exposures to patients with COVID-19 known. Patient does complain of a headache. Patient states that he was not feeling much better so he was advised that if he was not better in 24 hours to come to the ER. Patient has no medical history.] Physical Examination: [HEENT-PERRLA, EOMI. Cranial nerves II through XII grossl y intact. TMs clear. Mucous membranes moist. No adenopathy. Mild pharyngeal erythema noted. No exudates noted on exam. He had some fine ulcerations to the soft palate. No trismus on exam. Uvula midline. Cardiovascular-regular rate and rhythm without murmur or ectopy Lungs-clear to auscultation, chest wall stable without crepitus or subcu emphysema Abdomen-normoactive bowel sounds, soft, nontender, no rebound or rigidity, no peritoneal signs. Extremities-intact ?4, normal range of motion, normal pulses, atraumatic] Test Results: [Strep screen was positive. COVID test ordered and pending.] Emergency Department Course and Treatment: [] Treatment Plan: [Patient to continue with his Keflex. Patient advised use salt water gargles. Patient to use ibuprofen for discomfort. I feel that if his COVID test is negative and we have another source of infection the strep that patient will not need to isolate for 14 days.] Disposition: [Discharged home in stable condition] Impression: [Strep pharyngitis] This note was generated with [employer] dictation software. It may contain incorrect words, spelling, and punctuation that were not noted in review of the chart prior to signing ED Disposition - Plan for ED Patient: Referrals: Hilton Mae III, MD [Primary Care Provider] -
--- NOTE | 2020-06-01 06:36 | ED.DEP ---
ED Disposition - Plan for ED Patient: Instructions: ED Pharyngitis Strep Confirmed Referrals: Hilton Mae III, MD [Primary Care Provider] - 5-7 Days
== END 2020-06-01 06:50 | disposition home or self-care (01) ==
LOC: ED 05:59
PROVIDERS: Emergency Provider Emergency Medicine; PCP Family Medicine
DX: J02.0 Streptococcal pharyngitis (principal); Z72.0 Tobacco use
CPT/HCPCS: 87635; 87880; 94799; 99282; U0003

== ENCOUNTER 2021-10-02 06:15 | Emergency (ER) | payer OTHER, SELFPAY ==
[2021-10-02 06:18] VITALS: BP 149/83; PULSE 75; RESP 17; TEMP 37; O2SAT 98; BMI 38.0
--- NOTE | 2021-10-02 06:37 | EX.ED.DYSGE1 ---
HPI History of Present Illness Chief Complaint: Other, Pain/Inj Informant: patient Narrative Narrative: 25-year-old male presenting to the emergency department with left facial swelling. Skin has been present for several days. States initially he had some discomfort underneath the left mandible swollen spot. He went to urgent care and had a negative strep Covid test. States he had some leftover Keflex from a prior infection so he began to take it. Now he notes swelling of the left maxillary region. He denies any dental pain. He notes his nose has been rather congested. He states because of his congestion he has been doing more mouth breathing the mouth feels dry. He denies any fevers. PFSH PFSH Home Medications cephalexin 500 mg PO BID 06/01/20 [History Last Taken Unknown] amoxicillin-pot clavulanate 875 mg PO Q12H #20 tablet 10/02/21 [Rx Last Taken Unknown] valacyclovir 10/02/21 [History Last Taken Unknown] Allergy/AdvReac Type Severity Reaction Status Date / Time azithromycin [From Zithromax] Allergy Unknown Verified 10/02/21 06:17 diphenhydramine HCl Allergy Unknown Verified 10/02/21 06:17 [From Benadryl] Social History (Updated 10/02/21 @ 06:[address] Olayinka Esposito, DO) Smoking Status: Current every day smoker tobacco type: cigarettes substance use type: does not use ROS ROS ED Constitutional Constitutional ED: Denies chills or weight loss Eyes Eyes: Denies change in vision or diplopia ENT ENT ED: Reports rhinorrhea and other Details: Left facial pain and swelling ; Denies ear pain or sore throat Cardiovascular Cardiovascular: Denies chest pain, orthopnea, palpitations or racing heartbeat Respiratory/Chest Respiratory/Chest: Denies cough, dyspnea or orthopnea Gastrointestinal Gastrointestinal: Denies abdominal pain, diarrhea, nausea or vomiting Genitourinary Genitourinary ED: Denies dysuria, hematuria or urinary frequency Musculoskeletal Musculoskeletal: Denies arthralgias or myalgias Integumentary Denies abscess or rash Neurologic Neurologic: Denies headache(s) or weakness Psychiatric Psychiatric: Denies anxiety, depression, suicidal ideation or suicidal thoughts Endocrine Endocrinology: Denies polydipsia, polyphagia or polyuria Allergic/Immunologic Allergic/Immunologic ED: Denies mouth swelling, tongue swelling or urticaria EXAM Physical Exam Const Vital Signs: 12/01/21 06:18 10/02/21 06:23 Temperature 98.6 F Temperature Source Temporal Pulse Rate 75 Respiratory Rate 17 Respiratory Pattern Normal Blood Pressure 149/83 H Blood Pressure Mean 105 Pulse Ox 98 Oxygen Delivery Method Room Air Positive well nourished, well developed and obese General Appearance ED: well developed Nutritional Appearance: obese HEENT Reports normocephalic, head/scalp atraumatic, TM's clear and moist mucous membranes HEENT Narrative: There is turbinate edema and purulent drainage in the left nares. The left maxillary skin appears slightly edematous and erythematous. Mild tenderness to palpation. Dental exam appears normal. No tenderness on tooth percussion. No swelling along the gumline no trismus. Parotid gland appears normal. Submandibular glands and lymph nodes appear normal. tenderness; Negative for trauma Tympanic Membrane ED: Yes TM's clear Eyes PERRL and EOMs intact bilaterally Neck no lymphadenopathy, supple and no JVD Resp normal respiratory effort and clear to auscultation bilaterally Cardio regular rate, regular rhythm and no murmurs GI normal to inspection, nondistended, normoactive bowel sounds and non-tender Palpation: soft Back/Spine no CVA tenderness and normal ROM Extremity normal to inspection General Extremety ED: Negative for edema General Extremity: Negative for edema Neuro oriented x3 and CN's II-XII intact bilaterally Sensorium / Orientation: alert Motor Exam: strength 5/5 throughout Psych mental status grossly normal Mood & Affect: Negative for depressed or tearful Skin no rashes or lesions noted and no wounds MDM MDM MDM Narrative Medical decision making narrative: Patient was started on Augmentin. I do question whether or not this could be a left maxillary sinusitis. I do not think this is stemming from a dental source. Discharge Plan Triage Chief Complaint: Other, Pain/Inj ED Provider: Olayinka Esposito Dx/Rx/DC Orders Clinical Impression: Cellulitis of face Instructions: ED Cellulitis, Facial Prescriptions: New amoxicillin-pot clavulanate [amoxicillin-pot clavulanate] 875 MG tablet 875 mg PO Q12H Qty: 20 RF: 0 No Action cephalexin 500 MG capsule 500 mg PO BID RF: 0 valacyclovir 500 mg tablet RF: 0 Primary Care Provider: Hilton Mae III Referrals: Hilton Mae III, MD [Primary Care Provider] - 3-5 Days if not improving Disposition Disposition: Home, Self Care
== END 2021-10-02 06:52 | disposition home or self-care (01) ==
LOC: ED 06:47
PROVIDERS: Emergency Provider Emergency Medicine; PCP Family Medicine
DX: L03.211 Cellulitis of face (principal); F17.210 Nicotine dependence, cigarettes, uncomplicated; E66.9 Obesity, unspecified; Z79.899 Other long term (current) drug therapy
CPT/HCPCS: 99282

== ENCOUNTER 2021-11-19 07:41 | Emergency (ER) | payer OTHER, SELFPAY ==
[2021-11-19 07:42] VITALS: BP 177/91; PULSE 113; RESP 18; TEMP 35.6; O2SAT 96; BMI 37.8
--- NOTE | 2021-11-19 08:04 | EX.ED.DYSGE1 ---
HPI History of Present Illness Chief Complaint: Abscess Informant: patient Onset/Context/Timing Onset: Days Context: Gradual Onset Current Severity: Moderate Maximum Severity: Moderate Narrative Narrative: Patient presents secondary to recurrent pilonidal cyst. Patient states several months ago he went to urgent care secondary to similar. He followed up with Dr. Martinez 1 week later but by that time symptoms had resolved. He also reports having a similar episode when he was in middle school. Cyst returned several days ago. No spontaneous drainage but is painful. No fever or chills. [facility] Medical History (Updated 11/19/21 @ 10:[address] Ivelisse Damico MD) Acne Kidney calculi Medical History no medical history no medical history Home Medications cephalexin 500 mg PO BID 06/01/20 [History Last Taken Unknown] amoxicillin-pot clavulanate 875 mg PO Q12H #20 tablet 10/02/21 [Rx Last Taken Unknown] valacyclovir 10/02/21 [History Last Taken Unknown] cephalexin 500 mg PO Q12 #14 cap 11/19/21 [Rx Last Taken Unknown] hydrocodone-acetaminophen 1 tab PO Q6H PRN 3 Days #10 tab 11/19/21 [Rx Last Taken Unknown] sulfamethoxazole-trimethoprim [Bactrim DS] 1 tab PO BID #20 tab 11/19/21 [Rx Last Taken Unknown] Allergy/AdvReac Type Severity Reaction Status Date / Time azithromycin [From Zithromax] Allergy Unknown Verified 11/19/21 07:44 diphenhydramine HCl Allergy Unknown Verified 11/19/21 07:44 [From Benadryl] Social History Smoking Status: Current every day smoker tobacco type: cigarettes substance use type: does not use ROS ROS ED Constitutional Constitutional ED: Denies chills or fever(s) Eyes Eyes: Denies change in vision ENT ENT ED: Denies sore throat Cardiovascular Cardiovascular: Denies chest pain Respiratory/Chest Respiratory/Chest: Denies cough or dyspnea Gastrointestinal Gastrointestinal: Denies abdominal pain, diarrhea, nausea or vomiting Genitourinary Genitourinary ED: Denies dysuria Integumentary Reports abscess; Denies rash Neurologic Neurologic: Denies headache(s) or weakness Allergic/Immunologic Allergic/Immunologic ED: Denies urticaria EXAM Physical Exam Const Vital Signs: 11/19/21 07:42 Temperature 96.1 F L Temperature Source Temporal Pulse Rate 113 H Respiratory Rate 18 Blood Pressure 177/91 H Blood Pressure Mean 119 Pulse Ox 96 Oxygen Delivery Method Room Air Positive well nourished and well developed General Appearance ED: well developed HEENT Reports normocephalic and head/scalp atraumatic Eyes PERRL and EOMs intact bilaterally Neck supple Chest Wall inspection of chest normal and palpation of chest normal Resp normal respiratory effort and clear to auscultation bilaterally Cardio regular rate and regular rhythm GI normal to inspection, nondistended, normoactive bowel sounds and non-tender Palpation: soft Back/Spine Back/Spine Narrative: Pilonidal cyst noted with diameter approximately 3 cm. No surrounding cellulitis. No spontaneous drainage. Extremity normal to inspection Neuro oriented x3 and no sensory deficits noted Sensorium / Orientation: alert Motor Exam: strength 5/5 throughout Psych mental status grossly normal MDM MDM MDM Narrative Medical decision making narrative: Patient consented for I&D. Patient given dose of Bactrim and Keflex here. He was given a dose of Zofran secondary to nausea. Treatment and Re-Evaluation Comments:: I&D performed after infiltration of 1 cc 1% lidocaine. 1 cm incision made with #11 blade. Wound opened with curved hemostats. Return of blood but very little pus. Wound is cleansed and dressed. Patient will be treated with [place], Bactrim, Keflex. He will be referred to Dr. Martinez who he has seen for this in the past. Discharge Plan Triage Chief Complaint: Abscess ED Provider: Ivelisse Damico Dx/Rx/DC Orders Clinical Impression: Pilonidal cyst Instructions: ED Cyst Pilonidal Infected IandD Prescriptions: New sulfamethoxazole-trimethoprim [Bactrim DS] 800-160 mg tablet 1 tab PO BID Qty: 20 RF: 0 cephalexin 500 mg capsule 500 mg PO Q12 Qty: 14 RF: 0 hydrocodone-acetaminophen 5-325 mg tablet 1 tab PO Q6H PRN (Reason: pain) 3 Days Qty: 10 RF: 0 No Action cephalexin 500 MG capsule 500 mg PO BID RF: 0 valacyclovir 500 mg tablet RF: 0 amoxicillin-pot clavulanate [amoxicillin-pot clavulanate] 875 MG tablet 875 mg PO Q12H Qty: 20 RF: 0 Primary Care Provider: Justin Powers Referrals: Justin Powers MD [Primary Care Provider] -
[2021-11-19] MEDS: Lidocaine 1% (20 ml mdv) 20 ML Vial INFILT (09:57)
[2021-11-19] MEDS: Smz/Tmp Ds Tablet 1 TABLET PO (09:57)
[2021-11-19] MEDS: Ondansetron ODT 4 MG Tablet PO (09:57)
[2021-11-19] MEDS: Cephalexin 250 MG Capsule 500 MG PO (09:57)
[2021-11-19 11:06] VITALS: PULSE 84; RESP 16; O2SAT 100
--- NOTE | 2021-11-19 11:07 | ED.RN ---
THIS NURSE REVIEWED D/C INSTRUCTIONS WITH PT. PT VERBALIZED UNDERSTANDING OF INSTRUCTIONS. PT DENIES FURTHER NEEDS OR QUESTIONS AT THIS TIME. PT AMBULATES FROM ROOM ON OWN WITHOUT ASSISTANCE FROM STAFF
== END 2021-11-19 11:08 | disposition home or self-care (01) ==
LOC: ED 08:20
PROVIDERS: Emergency Provider Emergency Medicine; PCP Family Medicine; Visit Provider Emergency Medicine
DX: L05.91 Pilonidal cyst without abscess (principal); F17.210 Nicotine dependence, cigarettes, uncomplicated
CPT/HCPCS: 10080; 99283

== ENCOUNTER 2021-11-25 08:26 | Emergency (ER) | payer OTHER, SELFPAY ==
[2021-11-25 08:26] VITALS: BP 161/89; PULSE 117; RESP 16; TEMP 35.9; O2SAT 97; BMI 36.6
--- NOTE | 2021-11-25 09:39 | EDS_ITS ---
HPI History of Present Illness Chief Complaint: Abscess Informant: patient Narrative Narrative: Patient presents with drainage from cyst on his tailbone. He states he had this area swell up about a month or 2 ago. He followed up with Dr. Martinez but at that point the area had resolved. There is nothing that could be found. It started swelling again about 2 weeks ago. He was seen here last week. Had incision and drainage done. They got some blood and a little bit of purulence but not a large amount. He has been doing hot soaks. He has been on Bactrim. He has about 5 days left. He came in today because while at work he got a sudden warm sensation and had some bloody purulent malodorous drainage come out of the area. It actually hurts a little less now. He has not had nausea vomiting fevers or chills. He was just concerned that this happened and he did not know if drainage was good. He was calling to have an appointment to follow- up with Dr. Estes today but had not made that call yet. He otherwise feels fine. [facility] Medical History Acne Kidney calculi Home Medications cephalexin 500 mg PO BID 06/01/20 [History Last Taken Unknown] amoxicillin-pot clavulanate 875 mg PO Q12H #20 tablet 10/02/21 [Rx Last Taken Unknown] valacyclovir 10/02/21 [History Last Taken Unknown] cephalexin 500 mg PO Q12 #14 cap 11/19/21 [Rx Last Taken Unknown] hydrocodone-acetaminophen 1 tab PO Q6H PRN 3 Days #10 tab 11/19/21 [Rx Last Taken Unknown] sulfamethoxazole-trimethoprim [Bactrim DS] 1 tab PO BID #20 tab 11/19/21 [Rx Last Taken Unknown] Allergy/AdvReac Type Severity Reaction Status Date / Time azithromycin [From Zithromax] Allergy Unknown Verified 11/25/21 08:26 diphenhydramine HCl Allergy Unknown Verified 11/25/21 08:26 [From Benadryl] cephalexin AdvReac Vomiting Verified 11/25/21 08:57 Social History Smoking Status: Current every day smoker tobacco type: cigarettes substance use type: does not use ROS ROS ED Constitutional Constitutional ED: Denies chills or fever(s) ENT ENT ED: Denies sore throat Respiratory/Chest Respiratory/Chest: Denies cough or dyspnea Gastrointestinal Gastrointestinal: Denies abdominal pain, diarrhea, nausea or vomiting Musculoskeletal Musculoskeletal: Denies arthralgias, myalgias or neck pain Integumentary Reports abscess, rash and other Details: Patient does have some irritation from the tape he has been placing over this area. ; Denies Abrasions Endocrine Endocrinology: Denies polydipsia or polyuria Allergic/Immunologic Allergic/Immunologic ED: Denies urticaria EXAM Physical Exam Const Vital Signs: 11/25/21 08:26 Temperature 96.6 F L Temperature Source Temporal Pulse Rate 117 H Respiratory Rate 16 Blood Pressure 161/89 H Blood Pressure Mean 113 Pulse Ox 97 Oxygen Delivery Method Room Air Positive well nourished, well developed and obese General Appearance ED: well developed and NAD Nutritional Appearance: obese HEENT Reports moist mucous membranes Chest Wall inspection of chest normal Resp normal respiratory effort and clear to auscultation bilaterally Cardio regular rate Rate: other Other Details: Heart rate is now about 90. GI normal to inspection, nondistended, normoactive bowel sounds and non-tender GI Narrative: At the top of his gluteal cleft, he has a swollen red area that is about 1-1/2 x 4 cm. There is some erythema outside of this but it is very squared off and looks to be more consistent with irritation from tape and not actual cellulitis. There is active drainage of some slightly purulent fluid from the very bottom of this. There is a clearly open area. This does not extend down further into the gluteal fold. It does not go anywhere near his rectum. Palpation: soft Back/Spine no CVA tenderness Extremity normal to inspection Neuro oriented x3 Sensorium / Orientation: alert Skin Skin Narrative: See above. MDM MDM MDM Narrative Medical decision making narrative: As the patient was going to follow-up with Dr. Estes today, I did talk with him. I think the drainage at the patient had is actually good for him. Dr. Estes agrees and recommend he stay on his twice a day soaks. He continues his antibiotics. He will call to make an appointment later this week for recheck. I do not think this would benefit from further opening at this time as it is open and actively draining. Discharge Plan Triage Chief Complaint: Abscess ED Provider: Tigre Ortiz Dx/Rx/DC Orders Clinical Impression: Pilonidal cyst Instructions: Pilonidal Cyst Prescriptions: No Action cephalexin 500 MG capsule 500 mg PO BID RF: 0 valacyclovir 500 mg tablet RF: 0 amoxicillin-pot clavulanate [amoxicillin-pot clavulanate] 875 MG tablet 875 mg PO Q12H Qty: 20 RF: 0 sulfamethoxazole-trimethoprim [Bactrim DS] 800-160 mg tablet 1 tab PO BID Qty: 20 RF: 0 cephalexin 500 mg capsule 500 mg PO Q12 Qty: 14 RF: 0 hydrocodone-acetaminophen 5-325 mg tablet 1 tab PO Q6H PRN (Reason: pain) 3 Days Qty: 10 RF: 0 Primary Care Provider: Justin Powers Referrals: Olayinka Estes MD [STAFF PHYSICIAN] - 3-5 Days Justin Powers MD [Primary Care Provider] - Disposition Disposition: Home, Self Care
== END 2021-11-25 10:11 | disposition home or self-care (01) ==
PROVIDERS: Emergency Provider Emergency Medicine; PCP Family Medicine; Visit Provider Emergency Medicine
DX: L05.91 Pilonidal cyst without abscess (principal); F17.210 Nicotine dependence, cigarettes, uncomplicated; Z87.442 Personal history of urinary calculi; E66.9 Obesity, unspecified; Z68.36 Body mass index [BMI] 36.0-36.9, adult
CPT/HCPCS: 99282

== ENCOUNTER 2023-04-13 22:27 | Emergency (ER) | payer SELFPAY ==
[2023-04-13 22:28] VITALS: BP 149/89; PULSE 58; RESP 16; TEMP 35.8; O2SAT 98; BMI 35.9
--- NOTE | 2023-04-13 22:37 | ED.VIS.GI ---
HPI HPI - GI History of Present Illness Chief Complaint: Abd Pain Informant: patient Abdominal Pain/Flank Pain Onset: Today and Hours Context: Gradual Onset Timing: Continuous Quality: Aching and Burning Location: Epigastric Current Severity: Mild Maximum Severity: Mild Nausea/Vomiting/Emesis GI Symptom: Negative for Nausea or Vomiting Diarrhea/Melena/Hematochezia GI Symptom: Negative for Diarrhea, Melena or Hematochezia Associated Symptoms Associated Symptoms: Negative for Dysuria or Frequency Narrative Narrative: 27-year-old male history of fatty liver. No prior abdominal surgeries. States today around 3:00 after eating a breakfast pizza states that he had epigastric abdominal discomfort, burning discomfort. No radiation known to his back. He has had this pain before. He denies any nausea, vomiting or diarrhea. No fever or chills. No weight loss. No melena. At the particular makes the pain better or worse. Prior similar symptoms: Yes Recent Illness/Hospitalization: No PFSH PFSH Medical History Acne Kidney calculi Home Medications cephalexin 500 mg capsule 500 mg PO BID 06/01/20 [History Last Taken Unknown] amoxicillin 875 mg-potassium clavulanate 125 mg tablet 875 mg PO Q12H #20 TABLETS 10/02/21 [Rx Last Taken Unknown] valacyclovir 500 mg tablet 10/02/21 [History Last Taken Unknown] cephalexin 500 mg capsule 500 mg PO Q12 #14 caps 11/19/21 [Rx Last Taken Unknown] hydrocodone-acetaminophen 5-325mg 5mg-325mg 1 tab PO Q6H PRN pain 3 days #10 tabs 11/19/21 [Rx Last Taken Unknown] sulfamethoxazole 800 mg-trimethoprim 160 mg tablet (Bactrim DS) 1 tab PO BID #20 tabs 11/19/21 [Rx Last Taken Unknown] pantoprazole 40 mg tablet,delayed release (Protonix) 40 mg PO DAILY #30 tabs 04/13/23 [Rx Last Taken Unknown] Allergy/AdvReac Type Severity Reaction Status Date / Time azithromycin [From Zithromax] Allergy Unknown Verified 04/13/23 22:27 diphenhydramine HCl Allergy Unknown Verified 04/13/23 22:27 [From Benadryl] cephalexin AdvReac Vomiting Verified 04/13/23 22:27 Social History Smoking Status: Current every day smoker tobacco type: cigarettes substance use type: does not use ROS ROS ED ROS Narrative Abdominal pain. Review of Systems ROS Unobtainable: Denies due to encephalopathy Constitutional Constitutional ED: Denies chills or fever(s) ENT ENT ED: Denies ear pain Cardiovascular Cardiovascular: Denies chest pain Respiratory/Chest Respiratory/Chest: Denies cough or dyspnea Gastrointestinal Gastrointestinal: Reports abdominal pain; Denies constipation, diarrhea, melena, nausea or vomiting Genitourinary Genitourinary ED: Denies dysuria or hematuria Musculoskeletal Musculoskeletal: Denies arthralgias Neurologic Neurologic: Denies headache(s) Psychiatric Psychiatric: Denies anxiety Endocrine Endocrinology: Denies polydipsia Hematologic/Lymphatic Hematologic/Lymphatic: Denies easy bleeding Allergic/Immunologic Allergic/Immunologic ED: Denies mouth swelling EXAM Physical Exam Narrative Exam Narrative: Well-appearing 27-year-old male. Vital signs are stable afebrile. He does not look septic toxic or in any distress. He is sitting upright in bed appears comfortable. HEENT exam unremarkable. Moist use membranes. Lungs clear equal symmetrical bilaterally. Heart regular rhythm rate about 60 no murmur. Abdomen is soft he really does not have any significant tenderness. Says it is mildly uncomfortable epigastric. He has no right upper or right lower quadrant tenderness. There is no Duval sign or McBurney's point tenderness. No hernia or mass. No abdominal distention. Definitely no peritoneal signs. Back nontender. Moving all 4 extremities. Nontender no edema. He is awake and alert with no focal motor deficits. Very benign exam. Const Vital Signs: 04/13/23 22:28 Temperature 96.5 F L Temperature Source Temporal Pulse Rate 58 L Respiratory Rate 16 Blood Pressure 149/89 H Blood Pressure Mean 109 Pulse Ox 98 Positive well nourished and well developed; Negative for cachectic, contractures or unkempt General Appearance ED: well developed and NAD; Negative for unkempt, cachectic, contractures or pallor Nutritional Appearance: Negative for cachectic HEENT Reports moist mucous membranes normocephalic and atraumatic; Negative for trauma or tenderness Eyes PERRL and EOMs intact bilaterally General Eye ED: Negative for pale conjunctiva or scleral icterus Neck no lymphadenopathy, supple and no JVD General: Negative for tenderness Carotids: Negative for other Lymph Lymphatic: Negative for other Resp normal respiratory effort and clear to auscultation bilaterally Effort and Inspection: Negative for respiratory distress Auscultation: Negative for rales, rhonchi or wheezes Cardio regular rate, regular rhythm, S1 normal heart sound, S2 normal heart sound and no murmurs Rhythm: Negative for abnormal rhythm GI non-distended and no masses; Negative for non-tender GI Narrative: Very mild epigastric tenderness only. No right upper or right lower quadrant tenderness. No distention. Benign abdominal exam. Inspection: Negative for abdominal distention Auscultation: normoactive bowel sounds Palpation: soft and tender; Negative for guarding Back/Spine no CVA tenderness General Back: Negative for CVA tenderness Cervical Spine: Negative for cervical spine tenderness Thoracic Spine / Upper Back: Negative for thoracic spinal tenderness Lumbar Spine / Lower Back: Negative for lumbar spinal tenderness Coccyx: Negative for other Extremity full ROM General Extremety ED: Negative for edema or tenderness General Extremity: Negative for edema Neuro CN's II-XII intact bilaterally, moves all extremities and no sensory deficits noted Sensorium / Orientation: alert, oriented to person, oriented to place and oriented to time; Negative for orientation impaired or confused Motor Exam: strength 5/5 throughout Psych mental status grossly normal and thought process normal Appearance: Negative for unkempt Attitude: No agitated Mood & Affect: Negative for depressed, anxious or tearful Skin no wounds General Skin Exam: Negative for jaundice or pallor Lesions: no lesions Rashes: no rashes Trauma: Negative for abrasion Nails: Negative for discolored MDM MDM MDM Narrative Medical decision making narrative: 27-year-old male no prior abdominal surgeries with epigastric pain since around 3:00 today. No vomiting, diarrhea or fever. No melena. Benign exam. This may be gastritis or reflux. Will be given a GI cocktail and Protonix. I do not think he needs labs or imaging at this time. If his exam changes or is not improving that may be a consideration. Repeat exam at 11:18 PM patient is doing well. Says his symptoms are completely resolved after being given the p.o. Protonix and GI cocktail without lidocaine. Repeat abdominal exam is benign and nontender. We discharged home with a prescription for Protonix as needed. History & Record Review Discussion w/independent historian: Patient Discharge Plan Triage Chief Complaint: Abd Pain ED Provider: Elijah Nielsen Dx/Rx/DC Orders Clinical Impression: Abdominal pain, Acid reflux Instructions: Abdominal Pain, ED GERD (Adult) Prescriptions: New pantoprazole [Protonix] 40 mg tablet,delayed release (DR/EC) 40 mg PO DAILY Qty: 30 0RF No Action cephalexin 500 MG capsule 500 mg PO BID valacyclovir 500 mg tablet Label Comments: TAKE 1 TABLET BY MOUTH EVERY 12 HOURS FOR 3 DAYS amoxicillin-pot clavulanate [amoxicillin-pot clavulanate] 875 MG tablet 875 mg PO Q12H Qty: 20 0RF sulfamethoxazole-trimethoprim [Bactrim DS] 800-160 mg tablet 1 tab PO BID Qty: 20 0RF cephalexin 500 mg capsule 500 mg PO Q12 Qty: 14 0RF hydrocodone-acetaminophen 5-325 mg tablet 1 tab PO Q6H PRN (Reason: pain) 3 Days Qty: 10 0RF Primary Care Provider: Justin Powers Referrals: Justin Powers MD [Primary Care Provider] - 3-5 Days if not improving Activity Restrictions/Additional Instructions: Your pain was most likely secondary to acid reflux. I wrote you for medication should help with that. Return if increasing pain, fever, black or bloody stools or intractable vomiting. Disposition Disposition: Home, Self Care
[2023-04-13] MEDS: Pantoprazole Sodium 40 MG Tablet PO (22:45)
[2023-04-13] MEDS: Mag Hydrox/Al Hydrox/Simeth 30 ML UDC PO (22:46)
== END 2023-04-13 23:34 | disposition home or self-care (01) ==
PROVIDERS: Emergency Provider Emergency Medicine; PCP Family Medicine; Visit Provider Emergency Medicine
DX: R10.13 Epigastric pain (principal); K21.9 Gastro-esophageal reflux disease without esophagitis; F17.210 Nicotine dependence, cigarettes, uncomplicated
CPT/HCPCS: 99283